=== PATIENT | female | born 1980 | race Caucasian/White ===

== ENCOUNTER 2024-03-13 10:15 | Outpatient (REF) | payer MEDICAID, SELFPAY ==
[2024-03-13 14:50] LABS: MANUAL DIFF FLAG NO
[2024-03-13 14:55] LABS: Basophils Absolute Auto 0.1 X10*3/uL (0.0-0.2); Basophils Percent Auto 0.7 % (0-2); Eosinophils Absolute Auto 0.2 X10*3/uL (0.0-0.4); Eosinophils Percent Auto 2.6 % (0-4); Hematocrit 43.3 % (37.0-47.0); Hemoglobin 13.8 g/dl (12.0-16.0); Imm Gran Abs Auto 0.02 X10*3/uL (0.00-0.03); Imm Gran Pct Auto 0.3 % (0.0-0.4); Lymphocytes Percent Auto 29.1 % (20-40); Mean Corpuscular HGB Conc 31.9 g/dl (31.0-35.0); Mean Corpuscular Hemoglobin 27.3 pg (27.0-33.0); Mean Corpuscular Volume 85.6 fL (80.0-98.0); Mean Platelet Volume 11.6 fL (9.4-12.3); Monocytes Absolute Auto 0.7 X10*3/uL (0.1-1.2); Monocytes Percent Auto 9.7 % (2-11); Neutrophils Absolute Auto 3.9 x10*3/uL (2.0-8.3); Neutrophils Percent Auto 57.6 % (45-73); Platelet Count 247 X10*3/uL (160-400); Red Blood Count 5.06 X10*6/uL (4.20-5.50); Red Cell Distribution Width 13.2 % (11.0-16.0); White Blood Count 6.8 X10*3/uL (4.8-10.8)
[2024-03-13 15:20] LABS: Alanine Aminotransferase 31 U/L (0-31); Albumin Level 3.4 g/dL (3.5-5.0); Alkaline Phosphatase 83 U/L (39-117); Anion Gap 14 (12-20); Aspartate Amino Transferase 16 U/L (5-31); Bilirubin Direct 0.2 mg/dL (0.0-0.5); Bilirubin Total 0.7 mg/dL (0.0-1.0); Blood Urea Nitrogen 16 mg/dL (9-16); Carbon Dioxide 24 mmol/L (22-29); Chloride 102 mmol/L (96-108); Cholesterol 174 mg/dL (<200); Estimated Glomerular Filt Rate > 60; HDL Cholesterol 49 mg/dL (>40); LDL Cholesterol Calculated 97 mg/dL (<100); Sodium 136 mmol/L (135-145); Total Protein 7.1 g/dL (6.5-8.0); Triglycerides 142 mg/dL (<150)
[2024-03-13 15:22] LABS: Glucose Fasting 414 mg/dL (60-99)
[2024-03-13 15:26] LABS: TSH reflex Free T4 1.48 uIU/mL (0.32-4.0)
== END 2024-03-13 10:16 | disposition home or self-care (01) ==
LOC: HO.CHCLDS 10:15
PROVIDERS: Visit Provider Pediatrics
DX: E11.9 Type 2 diabetes mellitus without complications (principal)
CPT/HCPCS: 36415; 80053; 80061; 80076; 82248; 84443; 85025

== ENCOUNTER 2024-12-13 10:28 | Outpatient (REF) | payer MEDICAID, SELFPAY ==
--- OUTSIDE RECORDS SUMMARY | 2024-12-13 11:36 | XMS_ITS | Encounter Summary ---
Author Organization [employer] Address [address] [place] [address] 7t [place] [address] Care Team Providers Care Information Technology Consultant Name Role Phone Tess Ruvalcaba MD Primary Care Provider [phone] Encounter Details Date Type Department Care Team ([facility] st Contact Info) Description 09/27/2024 Orders Only [facility] [address] [place], [place] [id number] ProviderJames MD Social History Tobacco Use Types Packs/Day Years Used Date Smoking Tobacco: Never Passive Smoke Exposure: Current Smokeless Tobacco: Never Alcohol Use Standard Drinks/Week Comments Defer 0 (1 standard drink = 0.6 oz pur e alcohol) Alcohol Answer Date Recorded Frequency of Alcohol Consumption Not on file 09/09/2023 Average Number of Drinks Not on file 023 Frequency of Binge Drinking Not on file 08/22 Score 0 09/09/2023 Depression Answer Date Recorded Patient Health Questionnaire-9 Score 4 09/09/2023 Patient Health Questionnaire-9 Score 4 09/09/2023 Last PHQ-9: Questionnaire Data Not on file 1 Housing Stability Answer Date Recorded What is your housing situation today? I have aiden bhandari 09/06/[address] you li ve. Do you have problems with any of the following? None of the above 09/06/2023 Food Insecurity Answer Date Recorded Within the past 12 months, y ou worried that your food would run out before you got money to buy more: Never True 09/06/2023 Within the past 12 months,th e food you bought just didn't last and you didn't have enough money to get more: Never True Transportation Answer Date Recorded In the past 12 months, has l ack of transportation kept you from medical appts, meetings, work or from getting things needed for daily living? Yes, it has kept me from non-medical meetings, work, or getting things that I need 09/09/2023 Utilities Answer Date Recorded In the past 12 months, has t he electric, gas, oil or water company threatened to shut off services in your home? No 09/06/2023 Depression Answer Date Recorded Patient Health Questionnaire-2 Score 2 09/09/2023 Comments No Sex and Gender Information Value Date Recorded Sex Assigned at Female 09/21/2022 10:32 AM EDT Legal Sex Female 10:32 AM EDT Gender Identity Female 09/21/2022 10:32 AM EDT Sexual Orientation Straight 09/21/2022 10 :32 AM EDT documented as of this encounter Plan of Treatment Not on file documented as of this encounter Procedures Procedure Name Priority Date/Time Associated Diagnosis Comments DIABETES EYE EXAM Routine 09/22/2024 1:20 PM EDT documented in this encounter Results * Diabetes Eye Exam (09/22/2024 1:20 PM EDT) Historical Provider HEALTH MAINTENANCE Final Result documented in this encounter Visit Diagnoses Not on filedocumented in this encounter Additional Health Concerns Assessment Noted Time PHQ-9 Depression Total Score: 4 09/09/20 23 2:36 PM EDT documented as of this encounter Care Teams Information Technology Consultant Relationship Specialty Start Date End Date Tess Ruvalcaba MD [address] [place] [address] PCP - General Family Medicine 11/24/17 documented as of this encounter
--- OUTSIDE RECORDS SUMMARY | 2024-12-13 11:36 | XMS_ITS | Encounter Summary ---
Author Organization [employer] Address [address] [facility] 7 [place] [address] Care Team Providers Care Massage Coordinator Name Role Phone Tess Ruvalcaba MD Primary Care Provider [phone] Reason for Visit * Reason Onset Date Comments Nurse Triage 02/08/2024 Encounter Details Date Type Department Care Team ([facility] st Contact Info) Description 02/08/2024 Telephone [facility] MEDICINE [address] [place] [address] Tess Ruvalcaba MD [address] [place] [address] Nurse Triage Social History Tobacco Use Types Packs/Day Years [...] t he electric, gas, oil or water [employer] threatened to shut off services in your home? No 09/06/2023 Depression Answer Date Recorded Patient Health Questionnaire-2 Score 2 09/09/2023 Comments No Sex and Gender Information Value Date Recorded Sex Assigned at Female 09/21/2022 10:32 AM EDT Legal Sex Female 10:32 AM EDT Gender Identity Female 09/21/2022 10:32 AM EDT Sexual Orientation Straight 09/21/2022 10 :32 AM EDT documented as of this encounter Miscellaneous Notes * Telephone Encounter - Keshia Angeles RN - 02/08/2024 9:53 AM EDT Triage call with [place] [employer] Drier Operator ID [id number] Raul. Pt reports symptoms of cellulitis in left leg. Pt reports a history of this problem. Pt reports increased edema, swelling, redness and warmth ofthis left leg. Pt also has headache. Pt is advised to come to [facility] open till 8pm this evening. No available apts in [facility] today. Pt agrees with this disposition and will come to [facility]. Pt already aware of home care. Insurance is verified as active. Protocol Used: Leg Swelling and Edema (Adult) Protocol-Based Disposition: See in Office or Video Visit Today Video visit not offered Positive Triage Question: * Patient wants to be seen * All higher-acuity triage questions were negative Care Advice Discussed: * Reasons To Call Back - Swelling becomes worse - Swelling becomes red or painful to the touch - Calf pain occurs and becomes constant - You become worse * Telephone Encounter - Danilo Banks - 02/08/2024 8:48 AM EDT Symptoms: Fever, Leg Swelling - Not From Injury Outcome: Schedule an urgent appointment (within 1 hour) or talk to a nurse or provider soon Reason: Severe leg pain now The caller accepted this outcome documented in this encounter Plan of Treatment Not on file documented as of this encounter Visit Diagnoses Not on filedocumented in this encounter Additional Health Concerns Assessment Noted Time PHQ-9 Depression Total Score: 4 09/09/20 23 2:36 PM EDT documented as of this encounter Care Teams Massage Coordinator Relationship Specialty Start Date End Date Tess Ruvalcaba MD [address] [place] [phone] PCP - General Family Medicine 11/24/17 documented as of this encounter
--- OUTSIDE RECORDS SUMMARY | 2024-12-13 11:36 | XMS_ITS | Encounter Summary ---
Author Organization [employer] Address [address] [facility] 7t [place] [address] Care Team Providers Care Tire Design Engineer Name Role Phone Tess Ruvalcaba MD Primary Care Provider [phone] Encounter Details Date Type Department Care Team (Latest Contact Info) Description 12/05/2024 Travel Social History Tobacco Use Types Packs/Day Years [...] documented as of this encounter Care Teams Tire Design Engineer Relationship Specialty Start Date End Date Tess Ruvalcaba MD [address] [place] [address] PCP - General Family Medicine 11/24/17 documented as of this encounter
--- OUTSIDE RECORDS SUMMARY | 2024-12-13 11:36 | XMS_ITS | Encounter Summary ---
Author Organization [employer] Address [address] [facility] 7 [place] [address] Care Team Providers Care Canvas Products Sales Representative Name Role Phone Tess Ruvalcaba MD Primary Care Provider [phone] Reason for Visit * Reason Onset Date Comments Medication Question 04/27/2024 Encounter Details Date Type Department Care Team ([facility] st Contact Info) Description 04/27/2024 Telephone [facility] MEDICINE [address] [place] [address] Tess Ruvalcaba MD [address] [place] [address] Medication Question Social History Tobacco Use Types Packs/Day Years [...] encounter Miscellaneous Notes * Telephone Encounter - Daysi Carr LPN - 04/27/2024 1:15 PM EDT Please review message below. * Telephone Encounter - Danilo Banks - 04/27/2024 11:35 AM EDT Tc from patient calling states was advised by pharmacy to call [facility] in regards to the medication dulaglutide (Trulicity) 4.5 MG/0.5ML solution pen-injector states only have the 3mg in stock and has been with out this medication for a month documented in this encounter Plan of Treatment Not on file documented as of this encounter Visit Diagnoses Not on filedocumented in this encounter Additional Health Concerns Assessment Noted Time PHQ-9 Depression Total Score: 4 09/09/20 23 2:36 PM EDT documented as of this encounter Care Teams Can[employer] Products Sales Representative Relationship Specialty Start Date End Date Tess Ruvalcaba MD [address] [place] [id number] PCP - General Family Medicine 11/24/17 documented as of this encounter
--- OUTSIDE RECORDS SUMMARY | 2024-12-13 11:36 | XMS_ITS | Clinical Summary ---
Author Organization [employer] Address [address] [place] [address] 7t [place] [address] Care Team Providers Care Mix Technician Name Role Phone Tess Ruvalcaba MD Primary Care Provider [phone] Allergies Active Allergy Reactions Criticality Noted Date Comments Cat Dander 08/31/2023 Medications TRUEplus Lancets 33G misc TEST BLOOD SUGAR TWICE DAILY 60 each 023 Active glucose blood (FREESTYLE LITE) test strip Check BS subcutaneous bid 100 each 023 Active insulin glargine (Lantus) 100 UNIT/ML injection Inject 15 units subcutaneously qhs 10 mL 024 Active Alcohol Swabs 70 % pads Use tid as needed to check sugars 100 each 11 024 Active cholecalciferol VITAMIN D (Vitamin D-3) 50 MCG (1999) capsule TAKE ONE CAPSULE BY MOUTH TWICE DAILY 180 capsule 3 024 Active Blood Glucose Monitoring Suppl (Blood Glucose Monitor System) w/Device kitIndications:T ype 2 diabetes mellitus without complication, without long-term current use of insulin ([facility]) Use to check BS 4 times a day or as needed 1 kit 024 Active Jardiance 25 MG TAKE ONE TABLET BY MOUTH EVERY MORNING 30 tablet 5 024 Active Continuous Glucose Sensor (FreeStyle Pat 3 Sensor) misc USE TO check BLOOD SUGAR AND CHANGE EVERY 14 DAYS 024 Active UltiCare Insulin Syringe 30G X 5/16 0.5 ML misc USE ONE DAILY 024 Active Ozempic, 1 MG/DOSE, 4 MG/3ML solution pen-injector Inject 1 mg under the skin 1 (one) time per week. Active insulin lispro (HumaLOG KWIKPEN) 100 UNIT/ML injection Inject 10 Units under the skin with breakfast, with lunch, and with evening meal. Active gabapentin (Neurontin) 300 MG capsuleIndicatio ns:Diabetic polyneuropathy associated with type 2 diabetes mellitus (CMS/HCC) Take 1 capsule (300 mg) by mouth 3 times daily. 90 capsule 11 025 2025 Active dulaglutide (Trulicity) 4.5 MG/0.5ML solution pen-injector Inject under the skin once a week. 022 2024 Discontinued(M ed list cleanup (will not trigger notification to Pharmacy)) FREESTYLE LITE test strip TEST BLOOD SUGAR TWICE DAILY 023 2024 Discontinued(M ed list cleanup (will not trigger notification to Pharmacy)) glucose blood (FREESTYLE LITE) test strip TEST BLOOD SUGAR TWICE DAILY 60 strip 11 023 2024 Discontinued(M ed list cleanup (will not trigger notification to Pharmacy)) methocarbamol (Robaxin) 750 MG tablet Take 1 tablet (750 mg) by mouth 3 times daily for 10 days. 30 tablet 023 2024 Discontinued(M ed list cleanup (will not trigger notification to Pharmacy)) lidocaine (Lidoderm) 5 % patch APPLY 1 PATCH TO SKIN. LEAVE ON FOR 12 HOURS, THEN OFF FOR 12 HOURS DIRECTED. 30 patch 3 023 2024 Discontinued(M ed list cleanup (will not trigger notification to Pharmacy)) dulaglutide (Trulicity) 4.5 MG/0.5ML solution pen-injectorIndi cations:Type 2 diabetes mellitus with other specified complication, without long-term current use of insulin (CMS/[facility]) INJECT ONE PEN (=4.5MG) SUBCUTANEOUSLY ONCE A WEEK DIRECTED 2 mL 11 023 2024 Discontinued(M ed list cleanup (will not trigger notification to Pharmacy)) insulin syringe-needle U-100 31G X 5/16 1 mL misc Use as instructed 100 each 12 024 2024 Discontinued(M ed list cleanup (will not trigger notification to Pharmacy)) Continuous Glucose Monitor Sup miscIndications: Type 2 diabetes mellitus without complication, without long-term current use of insulin (CMS/HCC) Use with GCM device to check BS 2 kit 3 024 2024 Discontinued(M ed list cleanup (will not trigger notification to Pharmacy)) glipiZIDE (Glucotrol) 10 MG tablet TAKE ONE TABLET BY MOUTH TWICE DAILY BEFORE MEALS 180 tablet 1 024 2024 Discontinued(M ed list cleanup (will not trigger notification to Pharmacy)) cephalexin (Keflex) 500 MG capsule Take 1 capsule by mouth 4 times daily. 025 2024 Active Problems Problem Noted Date Diagnosed Date Morbid obesity 02/16/2023 Adenocarcinoma of uterus 12/29/2018 Diabetes mellitus 04/01/2018 Vitamin D deficiency 11/25/2017 Encounters Date Type Department Care Team Description 12/05/2024 10:45 AM EST Office Visit [facility] [address] [place] [address] Ana Barnes MD Diabetic polyneuropathy associated with type 2 diabetes mellitus ([facility]) (Primary Dx); Type 2 diabetes mellitus with hyperglycemia, with long-term current use of insulin ([facility]); Cellulitis of other specified site; Hypokalemia 12/05/2024 Travel 11/27/2024 Patient Outreach [facility] [address] [place] [address] Tess Ruvalcaba MD Transition Of Care (Tcm) (HDF- scheduled) 10/31/2024 Patient Outreach [facility] [address] [place] [address] Tess Ruvalcaba MD Pre-visit Planning ([facility] unable to complete over phone) 09/27/2024 Orders Only [facility] [address] [place] [address] ProviderJames MD from Last 3 Months Immunizations Name Administration Dates Next Due Hep B, adult 11/25/2017 Influenza Injectable Quadriv alant Preservative Free IIV4 MDCK 09/03/2021 Influenza injectable quadriv alent IIV4 with preservative 10/17/2019,09/01/2018,11/24/2017 Influenza injectable quadriv alent preservative free 09/09/2023,08/22/2020 Tdap 07/15/2018 Social History Tobacco Use Types Packs/Day Years [...] Orientation Straight 09/21/2022 10 :32 AM EDT Last Filed Vital Signs Vital Sign Reading Time Taken Comments Blood Pressure 126/58 12/05/2024 11:01 AM EST Pulse 100 12/05/2024 11:01 AM EST Temperature 36.7 ??C (98 ??F) 12/05/2024 11:01 AM EST Respiratory Rate 20 12/05/2024 11:01 AM EST Oxygen Saturation 98% 12/05/2024 11:01 AM EST Inhaled Oxygen Concentration - - Weight 158 kg (348 lb) 12/05/2024 11:01 AM EST Height 156.2 cm (5' 1.5 ) 12/05/2024 11:01 AM ES T Body Mass Index 64.69 12/05/2024 11:01 AM EST Plan of Treatment Health Maintenance Due Date Last Done Comments Pneumococcal Vaccine: Pediatrics (0 to 5 Years) and At-Risk Patients (6 to 64 Years) (1 of 2 - PCV) 1987 Diabetes: Foot Exam 1991 Alcohol/Substance Use Screening 1993 Family Planning (PISQ) 1996 Hepatitis B Vaccines (2 of 3 - 19+ 3-dose series) 12/23/2017 11/25/2017 Mammogram 2021 Diabetes: Urine Protein Screening 01/01/2023 01/01/2022, 10/16/2020, 02/12/2020 Dental Oral Exam 03/02/2024 08/31/2023, 02/16/2018 COVID-19 Vaccine ( season) 2024 12/12/2021, 01/17/2021, 12/15/2020 Dental X-Ray: Bitewings 09/01/2024 08/31/2023, 02/16 Depression Screening 09/09/2024 09/09/2023, 09/09/20 23 SDOH Screening 09/09/2024 09/09/2023 Dental Prophylaxis 02/01/2025 08/03/2024, 1 , 03/15/2019, Additional history exists Diabetes: Hemoglobin A1C 03/05/2025 025, 07/28/2024, 03/22/2024, Additional history exists Lipid Panel 03/13/2025 03/13/2024, 12/23, 10/16/2020 Tobacco Screening 12/05/2025 12/05/2024 Dental X-Ray: Full Mouth 09/01/2026 08/31/2023, 0306/2018 Eye Exam 09/22/2026 09/22/2024 DTaP/Tdap/Td Vaccines (2 - Td or Tdap) 07/15/2028 07/15/2018 Zoster Vaccines (1 of 2) 2031 RSV Patients and Patients Aged 60 years or older (1 - 1-dose 75+ series) 2056 HIV Screening Completed 02/12/2020 Hepatitis C Screening Completed 02/12/2020 Influenza Vaccine Completed 08/03/2024, , 09/03/2021, Additional history exists HIB Vaccines Aged Out No longer eligi ble based on patient's age to complete this topic HPV Vaccines Aged Out No longer eligi ble based on patient's age to complete this topic Hepatitis A Vaccines Aged Out No long er eligible based on patient's age to complete this topic IPV Vaccines Aged Out No longer eligi ble based on patient's age to complete this topic Meningococcal Vaccine Aged Out No alisha santi eligible based on patient's age to complete this topic RSV under 20 months Aged Out No longe r eligible based on patient's age to complete this topic Rotavirus Vaccines Aged Out No longer eligible based on patient's age to complete this topic Procedures Procedure Name Priority Date/Time Associated Diagnosis Comments POCT GLUCOSE Routine 12/05/2024 11:16 AM EST Type 2 diabetes mellitus with hyperglycemia, with long-term current use of insulin ([facility]) POCT GLYCATED HEMOGLOBIN, TOTAL Routine 12/05/2024 11:14 AM EST Type 2 diabetes mellitus with hyperglycemia, with long-term current use of insulin ([facility]) HM DIABETES EYE EXAM Routine 09/22/2024 1:20 PM EDT PROPHYLAXIS - ADULT Routine 08/03/2024 2 :00 PM EDT LIPID PANEL, STANDARD Routine 03/13/2024 10:20 AM EDT DIAGNOSTIC - DIAGNOSTIC IMAGING - INTRAORAL - COMPREHENSIVE SERIES OF RADIOGRAPHIC IMAGES Routine 08/31/2023 3:00 PM EDT COMPREHENSIVE ORAL EVALUATION - NEW OR ESTABLISHED PATIENT Routine 08/31/2023 3:00 PM EDT ALBUMIN, RANDOM URINE W/CREATININE Routine 01/01/2022 10:22 AM EST [facility] HISTORICAL HEPATITIS C ANTIBODY Routine 02/12/2020 10:28 AM EDT [facility] HISTORICAL HIV AB/AG Routine 02/12/2020 10:28 AM EDT from Last 3 Months or Most Recently Relevant to Health Maintenance Results * (ABNORMAL) POCT Glucose (12/05/2024 11:16 AM EST) Glucose Blood, POC 394(A) 60 - 200 mg/dL QC Media Lot # [id number] Lot# Expiration Date 8936 Blood Capillary blood specimen / Unknown 12/05/2024 11:16 AM EST Ana Barnes MD POINT OF CARE TEST ENTER/ED IT ORDERABLES Final Result * (ABNORMAL) POCT HGB A1C (12/05/2024 11:14 AM EST) Hemoglobin A1C 10,229,670 .0(A) 4.0 - 6.0 % QC Media Lot # [id number] Blood 12/05/2024 11:1 4 AM EST Ana Barnes MD POINT OF CARE TEST ENTER/ED IT ORDERABLES Final Result * Hm Diabetes Eye Exam (09/22/2024 1:20 PM EDT) Historical Provider HEALTH MAINTENANCE Final Result * Lipid Panel, Standard (03/13/2024 10:20 AM EDT) Triglycerides 142 <150 mg/dL [facility] Comment:Desirable Triglyceri de: less than 150 mg/dLBorderline High Triglyceride 150-199 mg/dLHigh Triglyceride: 200-499 mg/dLVery High Triglyceride: greater than or equal to 5OO mg/dL Cholesterol 174 <200 mg/dL [facility] Comment:Desirable Cholestero l: less than 200 mg/dLBorderline High Cholesterol: 200-239 mg/dLHigh Cholesterol: greater than 239 mg/dL LDL Cholesterol Calculated 97 <100 mg/dL [facility] Comment:Desirable LDL: less than 100 mg/dLNear Optimal/Above Optimal LDL: 110- 129 mg/dLBorderline High LDL: 130-159 mg/dLHigh LDL: 160-189 mg/dLVery High LDL: greater than or equal to 190 mg/dL HDL Cholesterol 49 >40 mg/dL [facility] Comment:Desirable HDL: great er than 40 mg/dL Note: This HDL assay may give artificially low results in patients with liver disease. 03/13/2024 10:2 0 AM EDT 03/13/2024 2:45 PM EDT us Tess Ruvalcaba MD LAB BLOOD ORDERABLES Final Re sult [facility] [address] [place] [address] [phone] * ALBUMIN, RANDOM URINE W/CREATININE (01/01/2022 10:22 AM EST) Microalbumin Urine 0.7 See Note: mg/dL [facility] Comment: Reference Range: ?? Reference Range Not established Microalb/Creat Ratio 9 <30 mcg/mg creat [facility] Comment: ?? The ADA defines abnormalities in albumin excretion as follows: ?? Albuminuria Category ?Result (mcg/mg creatinine) ?? Normal to Mildly increased ?? <30 Moderately increased ? 30-299 ?? Severely increased ? > OR = 300 ?? The ADA recommends that at least two of three specimens collected within a 3-6 month period be abnormal before considering a patient to be within a diagnostic category. Creatinine, Urine 80 20 - 275 mg/dL [facility] 01/01/2022 10:2 2 AM EST Tess Ruvalcaba MD LAB URINE ORDERABLES Final Re sult Performing Organization Address [facility] de Phone Number [facility] [address] * HEPATITIS C ANTIBODY (02/12/2020 10:28 AM EDT) HEPATITIS C ANTIBODY NONREACTIVE NONREACTIVE [facility] Comment: Antibodies to HCV not detected; does not exclude early acute HCV infection. 02/12/2020 10:2 8 AM EDT Tess Ruvalcaba MD HISTORICAL/NON ORDERABLE LABS Final Result Performing Organization Address [facility] Phone [facility] [address] * HIV AB/AG (02/12/2020 10:28 AM EDT) Pathologist [facility] HIV AG/AB NONREACTIVE [facility] Comment: HIV-1 p24 Ag and/or HIV-1/HIV-2 Ab not detected. ?? A test result that is nonreactive does not exclude the possibility of exposure to or infection with HIV-1 and/or HIV-2. Nonreactive results in this assay for individuals with prior exposure to HIV-1 and/or HIV-2 may be due to antigen and antibody levels that are below the limit of detection of this assay. ?? The [employer] HIV Ag/Ab Combo assay result and supplemental assay results should be interpreted in conjunction with the patient's clinical presentation, history and other laboratory results. ??If the results are inconsistent with clinical evidence, additional testing is suggested to confirm the result. 02/12/2020 10:2 8 AM EDT Tess Ruvalcaba MD HISTORICAL/NON ORDERABLE LABS Final Result Performing Organization Address [facility] de Phone Number [facility] [address] from Last 3 Months or Most Recently Relevant to Health Maintenance Insurance [facility] [address] [place] [id number] DENTAL-[facility] MEDICAID [address] [place] [id number] [place] [id number] [place] [id number] Care Teams Mix Technician Relationship Specialty Start Date End Date Tess Ruvalcaba MD [address] [place] [address] CHAVO Burr [id number] PCP - General Family Medicine 11/24/17
--- OUTSIDE RECORDS SUMMARY | 2024-12-13 11:36 | XMS_ITS | Encounter Summary ---
Author Organization [employer] Address [address] [place] [address] 7 [place] [address] Care Team Providers Care Low Raw Sugar Cutter Name Role Phone Tess Ruvalcaba MD Primary Care Provider [phone] Reason for Visit * Reason Comments Transition Of Care (Tcm) HDF- scheduled Encounter Details Date Type Department Care Team ([facility] st Contact Info) Description 11/27/2024 Patient Outreach [facility] MED & PEDS [address] [place] [address] Tess Ruvalcaba MD [address] [place] [address] Transition Of Care (Tcm) (HDF- scheduled) Social History Tobacco Use Types Packs/Day Years [...] as of this encounter Miscellaneous Notes * Significant Event - Manpreet Cramer - 11/27/2024 10:30 AM EST 11/27/24 1028 Hospital Discharges and Admission for [facility] Type of Visit Hospital Admission Date of Admission/Visit 11/24/24 Date of Discharge 11/26/24 Facility [facility] Diagnosis Lymphedema,Left leg cellulitis, Severe sepsis Diabetes,History of endometrial cancer, Hyponatremia,Morbidly obese Disposition Discharged Home Follow-Up Actions Follow-Up Needed Provider appointment Follow-Up Outcome Spoke to Patient;Booked Appointment Initial Contact Date 11/27/24 ronny Elizabeth outbound call to patient for HDF outreach. Patient's name and were confirmed.Patient educated on the importance of follow up with provider following inpatient admission. Patient offered an HDF appt. Patient is agreeable to an appointment and has been scheduled for 12/05/2024 at 10;45 AM with . Insurance verified prior to scheduling. Patient advised to bring to appointment a photo id and insurance card. Patient provided with education on contacting the Health Center with any questions or concerns prior to the scheduled appointment. Patient educated on extended clinic hours on Mondays and Wednesdays, and Walk-In Urgent Care Located in [facility] of [facility]. Patient provided with after-hours line for [facility], , which offer night time triage service and option to transfer to offender job retention specialist provider if needed. Discharge summary scanned into chart. documented in this encounter Plan of Treatment Not on file documented as of this encounter Visit Diagnoses Not on filedocumented in this encounter Additional Health Concerns Assessment Noted Time PHQ-9 Depression Total Score: 4 09/09/20 23 2:36 PM EDT documented as of this encounter Care Teams Low Raw Sugar Cutter Relationship Specialty Start Date End Date Tess Ruvaclaba MD [address] [place] [address] PCP - General Family Medicine 11/24/17 documented as of this encounter
--- OUTSIDE RECORDS SUMMARY | 2024-12-13 11:36 | XMS_ITS | Encounter Summary ---
Author Organization [employer] [facility] Address [address] [place] [address] [place] [address] Care Team Providers Care Vehicle Upholsterer Name Role Phone Tess Ruvalcaba MD Primary Care Provider [phone] Reason for Referral * Consultation (Routine) - Pending Review Specialty Diagnoses / Procedures Referred By Bhavin benedict Referred To Contact Vascular Surgery Diagnoses Cellulitis of other specified site Ana Barnes MD [address] [place] [address] Phone: tel: fax: Referral ID Status Reason Start Date Expiration Date Visits Requested Visits Authorized [id number] Pending Review Specialty Services Required 12/05/2024 12/05/2025 1 1 Reason for Visit * Reason Comments Hospital discharge follow-up Encounter Details Date Type Department Care Team (Latest Contact Info) Description 12/05/2024 10:45 AM EST Office Visit [facility] CH[facility] MED & PEDS [address] [place] [address] Ana Barnes MD [address] [place] [address] Diabetic polyneuropathy associated with type 2 diabetes mellitus (CMS/HCC) (Primary Dx); Type 2 diabetes mellitus with hyperglycemia, with long-term current use of insulin (CMS/HCC); Cellulitis of other specified site; Hypokalemia Social History Tobacco Use Types Packs/Day Years [...] AM EDT documented as of this encounter Last Filed Vital Signs Vital Sign Reading [...] Mass Index 64.69 12/05/2024 11:01 AM EST documented in this encounter Progress Notes * Ana Barnes MD - 12/05/2024 10:45 AM EST Subjective Patient ID: Trinidad Issa is a 44 y.o. female who presents for Hospital discharge follow-up. HPI Patient with history of diabetes, severe obesity, endometrial cancer Was evaluated at [facility] emergency department on November 24, 2024 for pain of the left leg of 2 days duration. Diagnosed with cellulitis and sepsis. Started on antibiotics. Overall improved. Hospitalization complicatedWith hypokalemia and hypophosphatemia. Patient improved and was discharged on Keflex 500 mg 5 timesa day. Patient still has 2 or 3 days of treatment left. Overall feels better. Needs to follow-up with the lymphedema clinic. Was started on gabapentin 300 mg at bedtime because of the complaint of the burning sensation of the left lower limb. The gabapentin has been effective and very helpful in helping patient falls asleep at night Patient Active Problem List Diagnosis Adenocarcinoma of uterus ([facility]/HCC) Morbid obesity ([facility]) Vitamin D deficiency Diabetes mellitus ([facility]) Current Outpatient Medications on File Prior to Visit Medication Sig Dispense Refill Alcohol Swabs 70 % pads Use tid as needed to check sugars 100 each 11 Blood Glucose Monitoring Suppl (Blood Glucose Monitor System) w/Device kit Use to check BS 4 times a day or as needed 1 kit 0 cephalexin (Keflex) 500 MG capsule Take 1 capsule by mouth 4 times daily. cholecalciferol VITAMIN D (Vitamin D-3) 50 MCG (1999 UT) capsule TAKE ONE CAPSULE BY MOUTH TWICE DAILY 180 capsule 3 Continuous Glucose Sensor (FreeStyle Pat 3 Sensor) [facility] USE TO check BLOOD SUGAR AND CHANGE EVERY14 DAYS glucose blood (FREESTYLE LITE) test strip Check BS subcutaneous bid 100 each 11 insulin glargine (Lantus) 100 UNIT/ML injection Inject 15 units subcutaneously qhs 10 mL 11 insulin lispro (HumaLOG KWIKPEN) 100 UNIT/ML injection Inject 10 Units under the skin with breakfast, with lunch, and with evening meal. Jardiance 25 MG TAKE ONE TABLET BY MOUTH EVERY MORNING 30 tablet 5 Ozempic, 1 MG/DOSE, 4 MG/3ML solution pen-injector Inject 1 mg under the skin 1 (one) time per week. TRUEplus Lancets 33G misc TEST BLOOD SUGAR TWICE DAILY 60 each 11 UltiCare Insulin Syringe 30G X 5/16 0.5 ML misc USE ONE DAILY [DISCONTINUED] Continuous Glucose Monitor Sup misc Use with GCM device to check BS 2 kit 3 [DISCONTINUED] dulaglutide (Trulicity) 4.5 MG/0.5ML solution pen-injector Inject under the skin once a week. [DISCONTINUED] dulaglutide (Trulicity) 4.5 MG/0.5ML solution pen-injector INJECT ONE PEN (=4.5MG) SUBCUTANEOUSLY ONCE A WEEK DIRECTED 2 mL 11 [DISCONTINUED] FREESTYLE LITE test strip TEST BLOOD SUGAR TWICE DAILY [DISCONTINUED] glipiZIDE (Glucotrol) 10 MG tablet TAKE ONE TABLET BY MOUTH TWICE DAILY BEFORE [id number] tablet 1 [DISCONTINUED] glucose blood (FREESTYLE LITE) test strip TEST BLOOD SUGAR TWICE DAILY 60 strip 11 [DISCONTINUED] insulin syringe-needle U-100 31G X 5/16 1 mL misc Use as instructed 100 each 12 [DISCONTINUED] lidocaine (Lidoderm) 5 % patch APPLY 1 PATCH TO SKIN. LEAVE ON FOR 12 HOURS, THEN OFF FOR 12 HOURS DIRECTED. 30 patch 3 [DISCONTINUED] methocarbamol (Robaxin) 750 MG tablet Take 1 tablet (750 mg) by mouth 3 times daily for 10 days. 30 tablet 0 No current facility-administered medications on file prior to visit. Review of Systems Constitutional: Negative for appetite change, chills and diaphoresis. Eyes: Negative for pain, redness and itching. Gastrointestinal: Negative for anal bleeding and blood in stool. Genitourinary: Negative for genital sores, hematuria and menstrual problem. Musculoskeletal: Negative for back pain, gait problem and joint swelling. Objective BP 126/58 (BP Location: Left arm, Patient Position: Sitting, BP Cuff Size: Adult long) Pulse 100 Temp 98 ??F (36.7 ??C) (Oral) Resp 20 Ht 5' 1.5 (1.562 m) Wt 348 lb (158 kg) SpO2 98% BMI 64.69 kg/m?? Physical Exam Constitutional: General: She is not in acute distress. Appearance: Normal appearance. She is obese. She is not ill-appearing, toxic- appearing or diaphoretic. Cardiovascular: Rate and Rhythm: Normal rate. Pulmonary: Effort: Pulmonary effort is normal. Skin: Comments: Erythema with desquamation of the left lower limb well-demarcated. Erythema with some scabs of the left knee. Assessment/Plan Diagnoses and all orders for this visit: Diabetic polyneuropathy associated with type 2 diabetes mellitus ([facility]) Comments: Continue with gabapentin as recommended. Orders: - gabapentin (Neurontin) 300 MG capsule; Take 1 capsule (300 mg) by mouth 3 times daily. Type 2 diabetes mellitus with hyperglycemia, with long-term current use of insulin ([facility]) Comments: A1c is not at goal Patient has a follow-up next week with her digital librarian She has not filled out the new dose of Lantus yet Orders: - POCT Glucose - POCT HGB A1C Cellulitis of other specified site Comments: Much improved Vaseline to the erythematous and desquamating areas to complete the treatment with cephalexin as directed. Orders: - Referral to Vascular Surgery; Future Hypokalemia Comments: Labs ordered. Patient will be contacted with results. Orders: - Basic Metabolic Panel; Future - Phosphate (As Phosphorus); Future documented in this encounter Plan of Treatment Scheduled Orders Name Type Priority Associated Diagnoses Orde r Schedule Basic Metabolic Panel Lab Routine Hypokalemia Expected: 12/05/2024 (Approximate), Expires: 12/05/2025 Phosphate (As Phosphorus) Lab Routine Hypokalemia Expected: 12/05/2024, Expires: 12/05/2025 Scheduled Referrals Name Type Priority Associated Diagnoses Orde r Schedule Referral to Vascular Surgery Outpatient Referral Routine Cellulitis of other specified site Expected: 12/05/2024 (Approximate), Expires: 12/05/2025 documented as of this encounter Procedures Procedure Name Priority Date/Time Associated Diagnosis Comments POCT GLUCOSE Routine 12/05/2024 11:16 AM EST Type 2 diabetes mellitus with hyperglycemia, with long-term current use of insulin ([facility]) POCT GLYCATED HEMOGLOBIN, TOTAL Routine 12/05/2024 11:14 AM EST Type 2 diabetes mellitus with hyperglycemia, with long-term current use of insulin ([facility]) documented in this encounter Results * (ABNORMAL) POCT Glucose (12/05/2024 11:16 AM EST) Glucose Blood, POC 394(A) 60 - 200 mg/dL QC Media Lot # [id number] Lot# Expiration Date 483 Blood Capillary blood specimen / Unknown 12/05/2024 11:16 AM EST Ana Barnes MD POINT OF CARE TEST ENTER/ED IT ORDERABLES Final Result * (ABNORMAL) POCT HGB A1C (12/05/2024 11:14 AM EST) Hemoglobin A1C 10,229,670 .0(A) 4.0 - 6.0 % QC Media Lot # [id number] Blood 12/05/2024 11:1 4 AM EST Ana Barnes MD POINT OF CARE TEST ENTER/ED IT ORDERABLES Final Result documented in this encounter Visit Diagnoses Diagnosis Diabetic polyneuropathy associated with type 2 diabetes mellitus ([facility])- Primary Type 2 diabetes mellitus with hyperglycemia, with long-term current use of insulin ([facility]) Cellulitis of other specified site Hypokalemia Hypopotassemia documented in this encounter Additional Health Concerns Assessment Noted Time PHQ-9 Depression Total Score: 4 09/09/20 23 2:36 PM EDT documented as of this encounter Care Teams Vehicle Upholsterer Relationship Specialty Start Date End Date Tess Ruvalcaba MD [address] [place] [address] PCP - General Family Medicine 11/24/17 documented as of this encounter
--- OUTSIDE RECORDS SUMMARY | 2024-12-13 11:37 | XMS_ITS | Encounter Summary ---
Author Organization [employer] Address [address] [place] [address] 7 [place] [address] Care Team Providers Care Mold Inspector Name Role Phone Tess Ruvalcaba MD Primary Care Provider Encounter Details Date Type Department Care Team ([facility] st Contact Info) Description 12/15/2022 Telephone [facility] CH[facility] MED & PEDS [address] [place] [address] Tess Ruvalcaba MD [address] [place] [address] Social History Tobacco Use Types Packs/Day Years Used Date Smoking Tobacco: Never Assessed Comments Unknown Sex and Gender Information Value Date Recorded Sex Assigned at Female 09/21/2022 10:32 AM EDT Legal Sex Female 10:32 AM EDT Gender Identity Female 09/21/2022 10:32 AM EDT Sexual Orientation Straight 09/21/2022 10 :32 AM EDT documented as of this encounter Plan of Treatment Not on file documented as of this encounter Visit Diagnoses Not on filedocumented in this encounter Care Teams Mold Inspector Relationship Specialty Start Date End Date Tess Ruvalcaba MD [address] [place] [address] PCP - General Family Medicine 11/24/17 documented as of this encounter
--- OUTSIDE RECORDS SUMMARY | 2024-12-13 11:37 | XMS_ITS | Encounter Summary ---
Author Organization [employer] Address [address] [facility] 7 [place] [address] Care Team Providers Care Superintendent Factory Name Role Phone Tess Ruvalcaba MD Primary Care Provider [phone] Reason for Visit * Reason Onset Date Comments PT1 09/02/2023 Encounter Details Date Type Department Care Team ([facility] st Contact Info) Description 09/02/2023 Telephone [facility] MED & PEDS [address] [place], [place] [id number] Tess Ruvalcaba MD [address] [place] [address] PT1 Social History Tobacco Use Types Packs/Day Years Used Date Smoking Tobacco: Never Passive Smoke Exposure: Current Smokeless Tobacco: Never Alcohol Use Standard Drinks/Week Comments Defer 0 (1 standard drink = 0.6 oz pur e alcohol) Depression Answer Date Recorded Patient Health Questionnaire-9 Score 0 04/15/2023 Housing Stability Answer Date Recorded What is [...] from getting things needed for daily living? No 09/06/2023 Utilities Answer Date Recorded In the past 12 months, has t he electric, gas, oil or water company threatened to shut off services in your home? No 09/06/2023 Depression Answer Date Recorded Patient Health Questionnaire-2 Score 0 04/15/2023 Comments No Sex and Gender Information Value Date Recorded Sex Assigned at Female 09/21/2022 10:32 AM EDT Legal Sex Female 10:32 AM EDT Gender Identity Female 09/21/2022 10:32 AM EDT Sexual Orientation Straight 09/21/2022 10 :32 AM EDT documented as of this encounter Miscellaneous Notes * Telephone Encounter - Awilda Jaimes - 09/02/2023 2:44 PM EDT PT-1 submitted for patient. They will receive a letter of approval or denial in the mail. * Telephone Encounter - Ingrid Neville - 09/02/2023 11:55 AM EDT Tc from [facility] (long term care administrator) requesting PT1 transportation for pt. Start Date: 09/09/2023 Time: 2:00 PM Visits: n/a Address: [address] [place] [address] Facility: [facility] Wheel Chair: n/a Security Software Engineer Needed: n/a documented in this encounter Plan of Treatment Not on file documented as of this encounter Visit Diagnoses Not on filedocumented in this encounter Additional Health Concerns Assessment Noted Time PHQ-9 Depression Total Score: 0 04/15/20 23 2:08 PM EDT documented as of this encounter Care Teams Superintendent Factory Relationship Specialty Start Date End Date Tess Ruvalcaba MD [address] [place] [id number] PCP - General Family Medicine 11/24/17 documented as of this encounter
--- OUTSIDE RECORDS SUMMARY | 2024-12-13 11:37 | XMS_ITS | Encounter Summary ---
Author Organization [employer] Address [address] [place] [address] 7 [place] [address] Care Team Providers Care Laboratory Coordinator Name Role Phone Tess Ruvalcaba MD Primary Care Provider [phone] Encounter Details Date Type Department Care Team (Latest Contact Info) Description 03/15/2019 Abstract C CONVERSIONS Dental, Provider, DDS Social History Tobacco Use Types Packs/Day Years [...] on filedocumented in this encounter Care Teams Laboratory Coordinator Relationship Specialty Start Date End Date Tess Ruvalcaba MD [address] [place] [address] PCP - General Family Medicine 11/24/17 documented as of this encounter
--- OUTSIDE RECORDS SUMMARY | 2024-12-13 11:37 | XMS_ITS | Clinical Summary ---
Author Organization [address] [place] [address] Address [address] [place] [address] Phone Care Team Providers Care Catheter Finisher And Inspector Name Role Phone Tess Ruvalcaba MD Primary Care Provider [phone] Allergies No known active allergies Medications Medication Sig Dispensed Refills Start Date End Date Status cholecalciferol (VITAMIN D-3) 1,250 mcg (50,000 unit) capsule Take 1 capsule (50,000 Units total) by mouth 1 (one) time per week. 05/10/2024 Active dulaglutide (Trulicity) 0.75 mg/0.5 mL pen injector injection Inject under the skin. Active ferrous sulfate 325 mg (65 mg iron) EC tablet Take 1 tablet (325 mg total) by mouth 1 (one) time each day. 03/30/2018 Active Active Problems Problem Noted Date Diagnosed Date Class 3 severe obesity with body mass index (BMI) of 60.0 to 69.9 in adult 09/05/2024 Endometrial cancer 11/01/2020 Anemia 11/01/2020 Diabetes mellitus 04/01/2018 Medical History Medical History Date Comments History of abdominal hysterectomy 10/04/2018 DX:History of abdominal hysterectomy Social History Tobacco Use Types Packs/Day Years Used Date Smoking Tobacco: Never Smokeless Tobacco: Never Alcohol Use Standard Drinks/Week Comments No 0 (1 standard drink = 0.6 oz pur e alcohol) Sex and Gender Information Value Date Recorded Sex Assigned at Not on file Gender Identity Not on file Sexual Orientation Not on file Job Start Date Occupation Industry Not on file Not on file Not on file Obstetrics History Last Filed Vital Signs Vital Sign Reading Time Taken Comments Blood Pressure 121/83 04/10/2024 4:07 PM EDT Sit ting L Arm Pulse 73 04/10/2024 4:07 PM EDT Temperature - - Respiratory Rate - - Oxygen Saturation - - Inhaled Oxygen Concentration - - Weight 154 kg (339 lb) 08/16/2024 10:13 AM EDT Height 157.5 cm (5' 2 ) 04/10/2024 4:07 PM EDT Body Mass Index 62 04/10/2024 4:07 PM EDT Plan of Treatment Health Maintenance Due Date Last Done Comments Breast Cancer Screening 1981 COVID-19 Vaccine (#1) 1986 Pneumococcal Vaccine: Pediatrics (0 to 5 Years) and At-Risk Patients (6 to 64 Years) (1 of 2 - PCV) 1987 Diabetes: Annual Foot Exam 1991 Diabetes: Annual Retina Eye Exam 1991 DTaP,Tdap,and Td Vaccines (1 - Tdap) 2000 Hepatitis B Vaccines (1 of 3 - 19+ 3-dose series) 2000 Cervical Cancer Screening: P ap Smear 2002 Depression Screening 10/20/2022 HIV Screening 10/20/2022 Hepatitis C Screening 10/20/2022 Social Influencers of Health Screening 10/20/2022 Diabetes: Annual Urine Albumin-Creatinine Ratio (uACR) 11/04/2022 Influenza Vaccine (#1) 2024 Diabetes: Blood Sugar Contro l Test (HGBA1C) 10/31/2024 05/01/2024, 05/01/2024 Diabetes: Annual GFR (Glomerular Filtration Rate) 03/13/2025 03/13/2024 Cholesterol Screening (Lipid Panel) 12/25/2026 12/25/2021 HIB Vaccines Aged Out No longer eligi [...] on patient's age to complete this topic MMR Vaccines Aged Out No longer eligi ble based on patient's age to complete this topic Meningococcal ACWY Vaccine Aged Out N o longer eligible based on patient's age to complete this topic RSV Immunization Patients Under 20 months Aged Out No longer eligible b ased on patient's age to complete this topic Varicella Vaccines Aged Out No longer eligible based on patient's age to complete this topic Procedures Procedure Name Priority Date/Time Associated Diagnosis Comments HEMOGLOBIN A1C Routine 05/01/2024 ANNUAL BMP BLOOD TEST Routine 03/13/2024 LIPID PANEL Routine 12/25/2021 from Last 3 Months or Most Recently Relevant to Health Maintenance Results * (ABNORMAL) Hemoglobin A1c (05/01/2024) Pathologist [facility] Hemoglobin A1C 10.2(A) 6.5 % Blood Venous blood specimen / Unknown Historical Provider LAB BLOOD ORDERAB LES * Annual BMP Blood Test (03/13/2024) [facility] Annual BMP Blood Test Abstracted Historical Provider [facility] * (ABNORMAL) Lipid panel (12/25/2021) [facility] LDL/HDL Ratio 4 0 - 4 Triglycerides 179(A) 0 - 150 mg/dL Cholesterol 196 0 - 200 mg/dL HDL 45 40 mg/dL LDL Cholesterol 116(A) 0 - 100 mg/dL Blood Venous blood specimen / Unknown Historical Provider LAB BLOOD ORDERAB LES from Last 3 Months or Most Recently Relevant to Health Maintenance Advance Directives Documents on File Type Date Recorded Patient Agency Sales Director Expl anation Health Care Decision (hx) 04/11/2021 AD YUEN DIRECTIVE Health Care Decision (hx) 04/11/2021 AD YUEN DIRECTIVE Health Care Decision (hx) 04/11/2021 AD YUEN DIRECTIVE Health Care Decision (hx) 04/11/2021 AD YUEN DIRECTIVE Health Care Decision (hx) 04/11/2021 AD YUEN DIRECTIVE Health Care Decision (hx) 04/11/2021 AD YUEN DIRECTIVE Care Teams Catheter Finisher And Inspector Relationship Specialty Start Date End Date Tess Ruvalcaba MD [address] [place] [address] PCP - General 02/23/18
[2024-12-13 14:27] LABS: Anion Gap 12 (12-20); Blood Urea Nitrogen 14 mg/dL (9-16); Calcium 8.9 mg/dL (8.4-10.2); Carbon Dioxide 23 mmol/L (22-29); Chloride 103 mmol/L (96-108); Estimated Glomerular Filt Rate > 60; Glucose Random 322 mg/dL (60-115); Phosphorus 2.8 mg/dL (2.7-4.5); Potassium 4.4 mmol/L (3.3-5.1); Sodium 134 mmol/L (135-145)
== END 2024-12-13 10:29 | disposition home or self-care (01) ==
LOC: HO.CHCLDS 10:28
PROVIDERS: Visit Provider Internal Medicine
DX: E87.6 Hypokalemia (principal)
CPT/HCPCS: 36415; 80048; 84100

== ENCOUNTER 2025-09-17 09:20 | Outpatient (AMB) | payer OTHER, SELFPAY ==
--- NOTE | 2025-09-17 09:21 | MHC.PC.OV ---
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 Required: No Accompanied by: Self / Same As Patient Allergies No Known Allergies Allergy (Verified 09/17/25 09:22) Medication List - Last Reconciled 09/17/25 by Raphael Buckner MD cholecalciferol (vitamin D3) 50 mcg PO BID estradiol (Vivelle-Dot) 1 patch topical 2XW gabapentin 300 mg PO TID insulin glargine (Lantus Solostar U-100 Insulin) 30 units subcut BEDTIME insulin lispro 10 units subcut TID rosuvastatin 5 mg PO DAILY tirzepatide (Mounjaro) mg subcut QWEEK Tobacco use date assessed: 09/17/25 Dental Screening Dental Screen Date: 09/17/25 Did you have a dental visit in the last 12 months?: Yes Did you have a dental problem in the last 6 months where you did not have access to dental care?: Yes Was dental information given to patient?: Patient has dentist HPI HPI Comments History of Present Illness Details History of Present Illness The patient is a 45 year old female presenting to establish care due to a change of insurance and for management of multiple chronic conditions. Diabetes Mellitus: The patient was diagnosed with diabetes approximately 7-8 years ago. Her current insulin regimen includes 30 units at night and 10 units before meals. She recently started Ozempic, prescribed by her sales recruiting coordinator. She has an upcoming ophthalmology appointment on September 25 for a diabetic eye exam but has not seen a employment law specialist this year. History of Cancer: The patient has a history of cancer, which occurred in [id number]. She was treated with radiotherapy and did not receive chemotherapy. She is followed by an oncologist and a woodworking bench carpenter and takes estradiol. Fatty Liver Disease: The patient reports a diagnosis of fatty liver disease. Her sales recruiting coordinator offered her a medication for it, which she was unable to obtain from the pharmacy as it was not available. She has never had a sonogram to evaluate her liver. Anemia: The patient required a blood transfusion last month. Lab work from August 23 showed low calcium and protein. Neuropathic Pain: The patient takes gabapentin for neuropathic pain located in her foot. History of Cellulitis: The patient reports a history of cellulitis in the left leg, which resulted in a persistent depression in the skin. Surgical History: - History of a procedure on the left leg for cellulitis. Medications: - Vitamin D3 for vitamin D deficiency - Estradiol - Gabapentin for neuropathic pain - Insulin, 30 units at night and 10 units before meals, for diabetes - Ozempic, started last Wednesday, for diabetes Diagnostic Results: - Labs (08/23): Low calcium and protein noted. - Mammogram (prior): Normal. Past Medical History - Cancer, status post-radiotherapy in [id number] - Diabetes Mellitus, diagnosed 7-8 years ago - Anemia, required blood transfusion last month - Neuropathic pain - Fatty liver disease - History of cellulitis of the left leg - Vitamin D deficiency Health Maintenance - Place referral for a mammogram, as it is due. - Request outside medical records from her specialists. - Obtain bloodwork today, including CBC, lipid panel, vitamin B12, and vitamin D. - Follow up in one week to review laboratory results. [facility] Medical History (Updated 09/17/25 @ 11:58 by Raphael Buckner MD) Type 2 diabetes mellitus with diabetic neuropathy Hyperlipidemia Elevated liver enzymes Diabetes mellitus Family History (Updated 09/17/25 @ 09:29 by Dyllan Topete MA) Mother High blood pressure Father Diabetes Social History Housing: Apartment Patient Tobacco Use Status: Never used Tobacco service: No Current occupational status: employed Cognitive needs: No Hearing needs: No Vision needs: No Questionnaire PHQ-9 Over the last 2 weeks, how often have you been bothered by any of the following problems? 1. Little interest or pleasure in doing things: not at all 2. Feeling down, depressed, or hopeless: not at all 3. Trouble falling or staying asleep, or sleeping too much: several days 4. Feeling tired or having little energy: several days 5. Poor appetite or overeating: several days 6. Feeling bad about yourself - or that you are a failure or have let yourself or your family down: not at all 7. Trouble concentrating on things, such as reading the newspaper or watching television: not at all 8. Moving or speaking so slowly that other people could have noticed. Or the opposite - being so fidgety or restless that you have been moving around a lot more than usual: not at all 9. Thoughts that you would be better off or of hurting yourself in some way: not at all Total score: 3 Source: Developed by Drs. Hari Vasquez, Cherise Coulter, Michael Whyte and colleagues, with an educational wale from [employer] Thrive Questionnaire Date Thrive assessed: 09/14/25 I am a: Patient What is your living situation today?: I have a steady place to live Within the past 12 months, did the food you bought not last and you didn't have the money to get more?: Sometimes True Within the past 12 months, did you worry whether your food would run out before you got money to buy more?: Sometimes True Do you have trouble paying for medicines?: Yes Do you have trouble getting transportation to medical appointments?: No Do you have trouble paying your heating and electricity bill?: Yes Do you have trouble taking care of your child, family member or friend?: No Do you have trouble with day-to-day activities such as bathing, preparing meals, shopping, managing finances, etc.?: No Are you currently unemployed and looking for a job?: No Are you interested in more education?: Yes Please select the resources that you would like help with: Paying for medicine Currently or been in a relationship where the following occur: No concerns reported THRIVE Score: 3 AUDIT C Alcohol Use Questionnaire (AUDIT-C) 1. How often do you have a drink containing alcohol?: Never Total Score: 0 RADHA-7 AMB Questionnaire RADHA-7 Feeling nervous, anxious, or on edge: 0 = Not at all Not being able to stop or control worryin = Not at all Worrying too much about different things: 1 = Several days Trouble relaxin = Not at all Being so restless that it is hard to sit still: 0 = Not at all Becoming easily annoyed or irritable: 0 = Not at all Feeling afraid as if something awful might happen: 0 = Not at all Total RADHA-7 score (0-4 normal; 5-9 mild; 10-14 moderate; 15-21 severe): 1 Source: Developed by Drs. Hari Vasquez, Cherise Coulter, Michael Whyte and colleagues, with an educational wale from [employer] Review of Systems Narrative Review of Systems - Neurological: Reports neuropathic pain in the foot. - Musculoskeletal: Denies new problems. 10-point ROS reviewed and negative except as noted in HPI Physical exam (Primary Care) Vital Signs: Last Vital Signs Temp 97.8 F 09/17/25 09:26 Pulse 100 09/17/25 09:26 BP 135/92 H 09/17/25 09:26 Pulse Ox 97 09/17/25 09:26 Oxygen Delivery Method Room Air 09/17/25 09:26 BMI result Body Mass Index 63.3 Tobacco/Smoking Status: Tobacco use Status Tobacco use date assessed 09/17/25 09/17/25 09:25 Patient Tobacco Use Status Never used Tobacco 09/17/25 09:25 PHQ-9: PHQ-9 Score PHQ-9: Total score 3 09/17/25 09:25 Thrive Assessment: Date of Thrive Assessment Date Thrive assessed 09/14/25 09/17/25 09:25 Currently or been in a relationship where the following occur: No concerns reported Narrative Physical Exam General: Well-appearing, in no acute distress. Vital signs: Within normal limits. HEENT: Normocephalic, atraumatic. PERRLA, EOMI. Conjunctiva clear, sclera anicteric. Oropharynx clear, mucous membranes moist. TMs intact bilaterally. Neck: Supple, no lymphadenopathy, no thyromegaly, no JVD or carotid bruits. Cardiovascular: RRR, normal S1/S2, no murmurs, rubs, or gallops. Peripheral pulses 2+ and symmetric. No edema. Respiratory: Lungs clear to auscultation bilaterally, no wheezes, rales, or rhonchi. Normal effort. Abdomen: Soft, non-tender, non-distended. Normoactive bowel sounds. No hepatosplenomegaly, no masses. MSK: Full range of motion, no joint swelling or deformity. Normal gait. Skin: Warm, dry, intact. No rashes, lesions, or pallor. Notable for a depression in the left area, possibly related to a previous cellulitis. Neuro: Alert and oriented x3. Cranial nerves II-XII intact. Strength 5/5 throughout. Sensation intact. Reflexes 2+ symmetric. Normal coordination and gait. Psych: Appropriate mood and affect. Normal judgment and insight. Coding Level of Care Code New Pt Level 4 (64529) Diagnoses Type 2 diabetes mellitus with diabetic neuropathy E11.40 Hyperlipidemia E78.5 Elevated liver enzymes R74.8 Fatty liver K76.0 History of cellulitis Z87.2 History of cancer Z85.9 Iron deficiency anemia D50.9 Assessment & Plan Assessment & Plan (1) Type 2 diabetes mellitus with diabetic neuropathy: Code(s): E11.40 - Type 2 diabetes mellitus with diabetic neuropathy, unspecified Category: Medical (2) Hyperlipidemia: Code(s): E78.5 - Hyperlipidemia, unspecified Category: Medical (3) Elevated liver enzymes: Code(s): R74.8 - Abnormal levels of other serum enzymes Category: Medical (4) Fatty liver: Code(s): K76.0 - Fatty (change of) liver, not elsewhere classified (5) History of cellulitis: Code(s): Z87.2 - Personal history of diseases of the skin and subcutaneous tissue (6) History of cancer: Code(s): Z85.9 - Personal history of malignant neoplasm, unspecified (7) Iron deficiency anemia: Code(s): D50.9 - Iron deficiency anemia, unspecified Plan Consent The patient provided verbal consent for a blood draw to be performed during the visit. Patient was informed and verbally consented to the use of an ambient scribe for clinic note documentation during this visit. Plan 1. Diabetes Mellitus - Continue current insulin and Ozempic regimen. - Place referral to podiatry for diabetic foot screening. - Patient advised to keep upcoming ophthalmology appointment on September 25. - Labs ordered today will include a check of hemoglobin A1c. 2. Fatty Liver Disease - Order an abdominal sonogram to evaluate the liver, as one has never been performed. - Discussed the risk of progression to fibrosis, cirrhosis, and the potential need for transplant if unmanaged. - Will attempt to obtain records regarding medication previously offered by sales recruiting coordinator. 3. Anemia - Check hemoglobin as part of today's bloodwork, given recent history of blood transfusion. 4. Neuropathic Pain - Continue gabapentin as prescribed. Discussion Notes I reviewed the patient's extensive medical history during this new patient visit. We discussed her fatty liver disease, and I explained the importance of evaluation and management to prevent progression to cirrhosis and a potential need for transplant. Consequently, I am ordering a sonogram of her liver. We also addressed necessary health maintenance, including referrals for her annual mammogram and a diabetic foot exam with a employment law specialist. I emphasized the importance of her upcoming diabetic eye exam. We will be drawing blood today and will make arrangements to obtain her outside medical records for care continuity. We will discuss the results of her tests in one week. Patient Instructions - Please go to the lab to have your blood drawn today. - Our office will give you referrals for a mammogram, a employment law specialist (foot doctor), and a liver ultrasound. - Please keep your scheduled appointment with the eye doctor on September 25. - We will contact you in about a week to review your test results. - Please ensure our office receives your medical records from your other doctors. Medical Decision Making The patient is a 45-year-old female with multiple chronic conditions who presents to [facility]. Her complex history includes diabetes mellitus, a history of cancer treated with radiotherapy, fatty liver disease, and a recent blood transfusion. The primary goals of this visit are to ensure continuity of care, address immediate health needs, and establish a plan for ongoing management. A liver sonogram is indicated to evaluate the patient's reported fatty liver disease, for which she has never had imaging; this is critical to assess for fibrosis or cirrhosis. Given her diabetes, referrals for podiatry and continued ophthalmology follow-up are essential for preventing complications. Routine cancer screening with a mammogram is also due. Comprehensive lab work, including CBC, CMP, A1c, lipids, and vitamin levels, is necessary to assess her anemia, metabolic control, and nutritional status. Obtaining outside records is a priority to understand the full scope of care provided by her sales recruiting coordinator, oncologist, and woodworking bench carpenter. Total time spent caring for the patient today was 30 minutes. This includes time spent before the visit reviewing the chart, time spent documenting, and time spent reviewing laboratory results, diagnostic imaging, medications, performing a medically necessary evaluation, counseling on diagnoses, care coordination, ordering appropriate tests, ordering appropriate medications, review of tests performed by other providers, reporting test results with the patient, communication with other healthcare providers. Orders: Orders Hepatitis B Surface Antibody Today Z13.9 - Encounter for screening, unspecified Hepatitis C Antibody Today Z13.9 - Encounter for screening, unspecified HIV Ab/Ag Today Z13.9 - Encounter for screening, unspecified UA CC w/rflx Micro + Cult Today Z13.9 - Encounter for screening, unspecified Vitamin B12 and Folate Today Z13.9 - Encounter for screening, unspecified MM screening mammo BI Today Z12.31 - Encounter for screening mammogram for malignant neoplasm of breast US abdomen complete Today E78.5 - Hyperlipidemia, unspecified, R74.8 - Abnormal levels of other serum enzymes Complete Blood Count Auto Diff Today Z13.9 - Encounter for screening, unspecified Hepatitis B Surface Antigen Today Z13.9 - Encounter for screening, unspecified Magnesium Today Z13.9 - Encounter for screening, unspecified TSH reflex Free T4 Today Z13.9 - Encounter for screening, unspecified Vitamin D 1,25 dihydroxy Today Z13.9 - Encounter for screening, unspecified Referrals Podiatry Referral E11.9 - Type 2 diabetes mellitus without complications
[2025-09-17 09:26] VITALS: BP 135/92; PULSE 100; TEMP 36.6; O2SAT 97; BMI 63.3
--- OUTSIDE RECORDS SUMMARY | 2025-09-17 10:20 | XMS_ITS | Encounter Summary ---
Author Organization [employer] Address [address] [place] [address] Care Team Providers Care Top Printing Press Operator Name Role Phone Tess Ruvalcaba MD Primary Care Provider [phone] Reason for Visit * Reason Comments Med Refill Encounter Details Date Type Department Care Team ([facility] st Contact Info) Description 02/28/2025 Refill [facility] CHC MED & PEDS [address] [place], [place] [phone] Tess Ruvalcaba MD [address] [place] [address] Social History Tobacco Use Types Packs/Day Years [...] housing situation today? I have aiden bhandari 01/31/[address] you li ve. Do you have problems with any of the following? None of the above 01/31/2025 Food Insecurity Answer Date Recorded Within the past 12 months, y ou worried that your food would run out before you got money to buy more: Never True 01/31/2025 Within the past 12 months,th e food you bought just didn't last and you didn't have enough money to get more: Never True 10/2025 Transportation Answer Date Recorded In the past 12 months, has l ack of transportation kept you from medical appts, meetings, work or from getting things needed for daily living? No 01/31/2025 Utilities Answer Date Recorded In the past 12 months, has t he electric, gas, oil or water company threatened to shut off services in your home? No 01/31/2025 Depression Answer Date Recorded Patient Health Questionnaire-2 Score 2 09/09/2023 Internet Access Answer Date Recorded Internet Access Q1 Yes 01/31/2025 Internet Access Q2 Not on file 01/31/2025 Comments No Sex and Gender Information Value Date Recorded Sex Assigned at Female 09/21/2022 10:32 AM EDT Legal Sex Female 10:32 AM EDT Gender Identity Female 09/21/2022 10:32 AM EDT Sexual Orientation Straight 09/21/2022 10 :32 AM EDT documented as of this encounter Plan of Treatment Upcoming Encounters Date Type Department Care Team (Late st Contact Info) Description 12/17/2025 2:15 PM EST Office Visit [facility] CHC ADULT DENTAL [address] [place] [address] Keith Barnes documented as of this encounter Visit Diagnoses Not on filedocumented in this encounter Additional Health Concerns Assessment Noted Time PHQ-9 Depression Total Score: 4 09/09/20 23 2:36 PM EDT documented as of this encounter Care Teams Top Printing Press Operator Relationship Specialty Start Date End Date Tess Ruvalcaba MD [address] [place] [address] PCP - General Family Medicine 11/24/17 documented as of this encounter
--- OUTSIDE RECORDS SUMMARY | 2025-09-17 10:20 | XMS_ITS | Encounter Summary ---
Author Organization [email or web address] [facility] Address [address] [place] [address] Care Team Providers Care Town Manager Name Role Phone Tess Ruvalcaba MD Primary Care Provider [phone] Encounter Details Date Type Department Care Team (Late Contact Info) Description 12/15/2022 Telephone [facility] MED & PEDS [address] [place] [address] Tess Ruvalcaba MD [address] [place] [address] Social History Tobacco Use Types Packs/Day Years [...] Encounters Date Type Department Care Team (Late Contact Info) Description 12/17/2025 2:15 PM EST Office Visit [facility] ADULT DENTAL [address] [place] [address] Keith Barnes documented as of this encounter Visit Diagnoses Not on filedocumented in this encounter Care Teams Town Manager Relationship Specialty Start Date End Date Tess Ruvalcaba MD [address] [place] [address] PCP - General Family Medicine 11/24/17 documented as of this encounter
--- OUTSIDE RECORDS SUMMARY | 2025-09-17 10:20 | XMS_ITS | Encounter Summary ---
Author Organization [employer] Address [address] [place] [address] Care Team Providers Care Digital Computer Operator Name Role Phone Tess Ruvalcaba MD Primary Care Provider [phone] Encounter Details Date Type Department Care Team (Latest Contact Info) Description 03/15/2019 Abstract [facility] CONVERSIONS Dental, Provider, DDS Social History Tobacco [...] Description 12/17/2025 2:15 PM EST Office Visit [facility] CHC ADULT DENTAL [address] [place] [address] Keith Barnes documented as of this encounter Visit Diagnoses Not on filedocumented in this encounter Care Teams Digital Computer Operator Relationship Specialty Start Date End Date Tess Ruvalcaba MD [address] [place] [address] PCP - General Family Medicine 11/24/17 documented as of this encounter
--- OUTSIDE RECORDS SUMMARY | 2025-09-17 10:21 | XMS_ITS | Encounter Summary ---
Author Organization [employer] Address [address] [place] [address] Care Team Providers Care Auxiliary Plant Operator Name Role Phone Tess Ruvalcaba MD Primary Care Provider [phone] Reason for Visit * Reason Onset Date Comments PT1 09/02/2023 Encounter Details Date Type Department Care Team ([facility] st Contact Info) Description 09/02/2023 Telephone [facility] CHC MED & PEDS [address] [place], [place] [phone] Tess Ruvalcaba MD [address] [place] [address] PT1 Social History Tobacco Use Types Packs/Day [...] 09/02/2023 11:55 AM EDT Tc from [facility] (certified social workers in health care) requesting PT1 transportation for pt. Start Date: 09/09/2023 Time: 2:00 PM Visits: n/a Address: [address] [place] [address] Facility: [facility] Wheel Chair: n/a Ventilating Engineer Needed: n/a documented in this encounter Plan of Treatment Upcoming Encounters Date Type Department Care Team ([facility] st Contact Info) Description 12/17/2025 2:15 PM EST Office Visit [facility] CHC ADULT DENTAL [address] [place] [address] Keith Barnes documented as of this encounter Visit Diagnoses Not on filedocumented in this encounter Additional Health Concerns Assessment Noted Time PHQ-9 Depression Total Score: 0 04/15/20 23 2:08 PM EDT documented as of this encounter Care Teams Auxiliary Plant Operator Relationship Specialty Start Date End Date Tess Ruvalcaba MD [address] [place] [address] PCP - General Family Medicine 11/24/17 documented as of this encounter
--- OUTSIDE RECORDS SUMMARY | 2025-09-17 10:21 | XMS_ITS | Clinical Summary ---
Author Organization [address] [place] [address] Address [address] [place] [address] Phone Care Team Providers Care Cottage Parent Name Role Phone Tess Ruvalcaba MD Primary Care Provider [phone] Allergies No known active allergies Medications cholecalciferol (VITAMIN D-3) 1,250 mcg (50,000 unit) [...] (BMI) of 60.0 to 69.9 in adult ([facility] V24, [facility] V28) 09/05/2024 Endometrial cancer ([facility] V24, [facility] V28) Anemia 11/01/2020 Diabetes mellitus ([facility] V24, [facility] V28) 09/2018 Medical History Medical History Date Comments History of abdominal hysterectomy 10/04/2018 DX:History of abdominal hysterectomy Social History Tobacco Use Types Packs/Day Years Used Date Smoking Tobacco: Never Smokeless Tobacco: Never Alcohol Use Standard Drinks/Week Comments No 0 (1 standard drink = 0.6 oz pur e alcohol) Comments Unknown Sex and Gender Information Value Date Recorded Sex Assigned at Not on file Legal Sex Female 12:53 PM EST Gender Identity Not on file Sexual Orientation Not on file Obstetrics History Last Filed [...] Cancer Screening 1981 COVID-19 Vaccine (#1) 1986 Diabetes: Annual Foot Exam 1991 Diabetes: Annual Retina Eye Exam 1991 DTaP,Tdap,and Td Vaccines (1 - Tdap) 2000 Hepatitis B Vaccines (1 of 3 - 19+ 3-dose series) 2000 Pneumococcal Vaccine: Pediatrics (0 to 5 Years) and At-Risk Patients (6 to 49 Years) (1 of 2 - PCV) 2000 Cervical Cancer Screening: P ap Smear 2002 HPV Vaccines (1 - 3-dose SCD M series) 2008 HIV Screening 10/20/2022 Hepatitis C Screening 10/20/2022 Social Influencers of Health Screening 10/20/2022 Diabetes: Annual Urine Albumin-Creatinine Ratio (uACR) 11/04/2022 Diabetes: Blood Sugar Contro l Test (HGBA1C) 10/31/2024 05/01/2024, 05/01/2024 Depression Screening 11/22/2024 Diabetes: Annual GFR (Glomerular Filtration Rate) 03/13/2025 03/13/2024 Influenza Vaccine (#1) 2025 Cholesterol Screening (Lipid Panel) 12/25/2026 12/25/2021 RSV Immunization Adult Patients (1 - 1-dose 75+ series) 2056 HIB Vaccines Aged Out No longer eligi [...] patient's age to complete this topic Meningococcal B Vaccine Aged Out No l onger eligible based on patient's age to complete [...] Maintenance Results * (ABNORMAL) Hemoglobin A1c (05/01/2024) Hemoglobin A1C 10.2(A) <=6.5 % Blood Venous blood specimen / Unknown [facility] Provider LAB BLOOD ORDERABLES Julissa l Result * Annual BMP Blood Test (03/13/2024) Annual BMP Blood Test Abstracted [facility] Provider HEALTH MAINTENANCE Final Result * (ABNORMAL) Lipid panel (12/25/2021) LDL/HDL Ratio 4 0 - 4 Triglycerides 179(A) 0 - 150 mg/dL Cholesterol 196 0 - 200 mg/dL HDL 45 >=40 mg/dL LDL Cholesterol 116(A) 0 - 100 mg/dL Blood Venous blood specimen / Unknown Historical Provider LAB BLOOD ORDERABLES Julissa l Result from Last 3 Months or Most Recently Relevant to Health Maintenance Insurance [place] - [place] Advance Directives Documents on File Type Date Recorded Patient Punchboard Stuffer Expl anation Health Care Decision (hx) 04/11/2021 AD YUEN DIRECTIVE Health Care Decision (hx) 04/11/2021 AD YUEN DIRECTIVE Health Care Decision (hx) 04/11/2021 AD YUEN DIRECTIVE Health Care Decision (hx) 04/11/2021 AD YUEN DIRECTIVE Health Care Decision (hx) 04/11/2021 AD YUEN DIRECTIVE Health Care Decision (hx) 04/11/2021 AD YUEN DIRECTIVE Care Teams Cottage Parent Relationship Specialty Start Date End Date Tess Ruvalcaba MD [address] [place] [phone] PCP - General 02/23/18
--- OUTSIDE RECORDS SUMMARY | 2025-09-17 10:21 | XMS_ITS | Clinical Summary ---
Author Organization [employer] Address [address] [place] [address] 7 [place] [address] Care Team Providers Care Cage Unloader Name Role Phone Tess Ruvalcaba MD Primary Care Provider [phone] Allergies Active Allergy Reactions Criticality Noted Date Comments Cat Danmarcia 08/31/2023 Medications glucose blood (FREESTYLE LITE) test strip Check BS subcutaneous bid 100 each 11 023 Active Alcohol Swabs 70 % pads Use tid as needed to check sugars 100 each 11 024 Active cholecalciferol VITAMIN D (Vitamin D-3) 50 MCG (1999) capsule TAKE ONE CAPSULE BY MOUTH TWICE DAILY 180 capsule 3 024 Active Blood Glucose Monitoring Suppl (Blood Glucose Monitor System) w/Device kitIndications:T ype 2 diabetes mellitus without complication, without long-term current use of insulin ([facility]) Use to check BS 4 times a day or as needed 1 kit 024 Active Continuous Glucose Sensor (FreeStyle Pat 3 Sensor) [facility] USE TO check BLOOD SUGAR AND CHANGE EVERY 14 DAYS 024 Active insulin lispro (HumaLOG KWIKPEN) 100 UNIT/ML injection Inject 10 Units under the skin with breakfast, with lunch, and with evening meal. Active Vivelle-Dot 0.025 MG/24HR APPLY ONE PATCH TOPICALLY EVERY WEDNESDAY AND Wednesday 025 Active Lantus SoloStar 100 UNIT/ML pen INJECT 30 UNITS SUBCUTANEOUSLY AT BEDTIME 025 Active Ozempic, 2 MG/DOSE, 8 MG/3ML solution pen-injector INJECT TWO MG SUBCUTANEOUSLY ONCE PER WEEK Active Jardiance 25 MG TAKE ONE TABLET BY MOUTH EVERY MORNING 30 tablet 5 Active TRUEplus Lancets 33G misc TEST BLOOD SUGAR TWICE DAILY 60 each Active pen needle 32G x 4 mm misc Inject under the skin 4 times daily. Use as instructed 100 each Active gabapentin (Neurontin) 300 MG capsuleIndicatio ns:Diabetic polyneuropathy associated with type 2 diabetes mellitus (HCC) Take 1 capsule (300 mg) by mouth 3 times daily. 90 capsule 3 025 2025 Active gabapentin (Neurontin) 300 MG capsuleIndicatio ns:Diabetic polyneuropathy associated with type 2 diabetes mellitus (HCC) Take 1 capsule (300 mg) by mouth 3 times daily. 90 capsule 11 025 2024 Discontinued(R eorder (will not trigger notification to Pharmacy)) Active Problems Problem Noted Date Diagnosed Date Morbid obesity ([facility]) 02/16/2023 Adenocarcinoma of uterus ([facility]) 12/29/2018 Diabetes mellitus 04/01/2018 Assessment & Plan (12/26/2024 4:06 PM EST): Continue meds management as per endocrinology.Ozempic dose just increased last week per patient. Vitamin D deficiency 11/25/2017 Encounters Date Type Department Care Team Description 09/03/2025 Telephone [facility] [address] [place] [address] Tess Ruvalcaba MD Med Refill 07/05/2025 2:00 PM EDT Office Visit [facility] [address] [place] [address] Chrissy Perez DDS 06/27/2025 Telephone [facility] [address] [place] [address] Tess Ruvalcaba MD 06/26/2025 Telephone [facility] [address] [place] [address] Tess Ruvalcaba MD Prior Authorization 06/19/2025 1:00 PM EDT Office Visit [facility] [address] [place] [address] Chrissy Perez DDS from Last 3 Months Immunizations Immunization Administration Dates Next Due Hep B, adult 11/25/2017 Influenza Injectable Quadriv alant Preservative Free IIV4 MDCK 09/03/2021 Influenza injectable quadriv alent IIV4 with preservative 10/17/2019,09/01/2018,11/24/2017 Influenza injectable quadriv alent preservative free 09/09/2023,08/22/2020 Influenza, Injectable, MDCK, preservative free 08/03/2024 Tdap 07/15/2018 Social History Tobacco Use Types [...] Sign Reading Time Taken Comments Blood Pressure 128/70 06/14/2025 1:05 PM EDT Pulse 70 06/14/2025 1:05 PM EDT Temperature 37.1 C (98.7 F) 02/14/2025 10:08 AM EDT Respiratory Rate 20 02/14/2025 10:08 AM EDT Oxygen Saturation 95% 02/14/2025 10:08 AM EDT Inhaled Oxygen Concentration - - Weight 152 kg (335 lb 3.2 oz) 12/26/2024 11:30 A M EST Height 156.2 cm (5' 1.5 ) 12/26/2024 11:30 AM ES T Body Mass Index 62.31 12/26/2024 11:30 AM EST Plan of Treatment Upcoming Encounters Date Type Department Care Team (Late st Contact Info) Description 12/17/2025 2:15 PM EST Office Visit [facility] [address] [place] [address] Keith Barnes Health Maintenance Due Date Last Done Comments Disability Screening 1981 Diabetes: Foot Exam 1991 Family Planning (PISQ) 1996 HPV Vaccines (1 - 3-dose series) 1996 Pneumococcal Vaccine: Pediatrics (0 to 5 Years) and At-Risk Patients (6 to 49) Years (1 of 2 - PCV) 2000 Hepatitis B Vaccines (2 of 3 - 19+ 3-dose series) 12/23/2017 11/25/2017 Mammogram 2021 Diabetes: Urine Protein Screening 01/01/2023 01/01/2022, 10/16/2020, 02/12/2020 Depression Screening 09/09/2024 09/09/2023, 09/09/20 Diabetes: Hemoglobin A1C 03/05/2025 025, 07/28/2024, 05/01/2024, Additional history exists Lipid Panel 03/13/2025 03/13/2024, 12/23, 10/16/2020 COVID-19 Vaccine ( season) 2025 12/12/2021, 01/17/2021, 12/15/2020 Influenza Vaccine (#1) 2025 , 09/09/2023, 09/03/2021, Additional history exists Dental Oral Exam 12/16/2025 06/14/2025, 08/2023, 02/16/2018 Dental Prophylaxis 12/16/2025 06/14/2025, 0 08/03/2024, 08/31/2023, Additional history exists Alcohol/Substance Use Screening 12/26/2025 12/26/2024 SDOH Screening 01/31/2026 01/31/2025 Dental X-Ray: Bitewings 06/15/2026 06/14/20, 08/31/2023, 02/16/2018 Tobacco Screening 07/05/2026 07/05/2025 Dental X-Ray: Full Mouth 09/01/2026 08/31/2023, 01/21 Eye Exam 09/22/2026 09/22/2024 DTaP/Tdap/Td Vaccines (2 - Td or Tdap) 07/15/2028 07/15/2018 Zoster Vaccines (1 of 2) 2031 RSV Patients and Patients Aged 60 years or older (1 - 1-dose 75+ series) 2056 HIV Screening Completed 02/12/2020 Hepatitis C Screening Completed 02/12/2020 HIB Vaccines Aged Out No longer eligi [...] Procedure Name Priority Date/Time Associated Diagnosis Comments CASE PRESENTATION, DETAILED AND EXTENSIVE TREATMENT PLANNING Routine 07/05/2025 2:00 PM EDT 2 O RESIN-BASED COMPOSITE - 1 SURF, POSTERIOR Routine 07/05/2025 2:00 PM EDT 3 O COMPOSITE FILLING Routine 07/05/2025 12:00 AM EDT CASE PRESENTATION, DETAILED AND EXTENSIVE TREATMENT PLANNING Routine 06/19/2025 1:00 PM EDT 31 LO RESIN-BASED COMPOSITE - 2 SURF, POSTERIOR Routine 06/19/2025 1:00 PM EDT PROPHYLAXIS - ADULT Routine 06/14/2025 1 :00 PM EDT Dental caries BITEWINGS - 4 RADIOGRAPHIC IMAGES Routine 06/14/2025 1:00 PM EDT Dental caries PERIODIC ORAL EVALUATION - ESTABLISHED PATIENT Routine 06/14/2025 1:00 PM EDT Dental caries POCT GLYCATED HEMOGLOBIN, TOTAL Routine 12/05/2024 11:14 AM EST Type 2 diabetes mellitus with hyperglycemia, with long-term current use of insulin ([facility]) DIABETES EYE EXAM Routine 09/22/2024 1:20 PM EDT LIPID PANEL, STANDARD Routine 03/13/2024 10:20 AM EDT INTRAORAL - COMPLETE SERIES OF RADIOGRAPHIC IMAGES Routine 08/31/2023 3:00 PM EDT ALBUMIN, RANDOM URINE W/CREATININE Routine 01/01/2022 10:22 AM EST [facility] HISTORICAL HEPATITIS C ANTIBODY Routine 02/12/2020 10:28 AM EDT [facility] HISTORICAL HIV AB/AG Routine 02/12/2020 10:28 AM EDT from Last 3 Months or Most Recently Relevant to Health Maintenance Results * (ABNORMAL) POCT HGB A1C (12/05/2024 11:14 AM EST) Hemoglobin A1C 10,229,670 .0(A) 4.0 - 6.0 % QC Media Lot # [id number] Blood 12/05/2024 11:1 4 AM EST Ana Barnes MD POINT OF CARE TEST ENTER/ED IT ORDERABLES Edited Result - Final * Diabetes Eye Exam (09/22/2024 1:20 PM EDT) us Historical Provider HEALTH MAINTENANCE Final Result * Lipid Panel, Standard (03/13/2024 10:20 AM EDT) Triglycerides 142 <150 mg/dL [facility] Comment:Desirable Triglyceri de: less than 150 mg/dLBorderline High Triglyceride 150-199 mg/dLHigh Triglyceride: 200-499 mg/dLVery High Triglyceride: greater than or equal to 5OO mg/dL Cholesterol 174 <200 mg/dL [facility] Comment:Desirable Cholestero l: less than 200 mg/dLBorderline High Cholesterol: 200-239 mg/dLHigh Cholesterol: greater than 239 mg/dL LDL Cholesterol Calculated 97 <100 mg/dL [facility] Comment:Desirable LDL: less than 100 mg/dLNear Optimal/Above Optimal LDL: 110- 129 mg/dLBorderline High LDL: 130-159 mg/dLHigh LDL: 160-189 mg/dLVery High LDL: greater than or equal to 190 mg/dL HDL Cholesterol 49 >40 mg/dL [facility] Comment:Desirable HDL: great er than 40 mg/dL Note: This HDL assay may give artificially low results in patients with liver disease. 03/13/2024 10:2 0 AM EDT 03/13/2024 2:45 PM EDT us Tess Ruvalcaba MD LAB BLOOD ORDERABLES Final Re sult [facility] [address] [place] [phone] * ALBUMIN, RANDOM URINE W/CREATININE (01/01/2022 10:22 AM EST) Microalbumin Urine 0.7 See Note: mg/dL [facility] Comment: Reference Range: Reference Range Not established Microalb/Creat Ratio 9 <30 mcg/mg creat [facility] Comment: The ADA defines abnormalities in albumin excretion as follows: Albuminuria Category Result (mcg/mg creatinine) Normal to Mildly increased <30 Moderately increased 30-299 Severely increased > OR = 300 The ADA recommends that at least two of three specimens collected within a 3-6 month period be abnormal before considering a patient to be within a diagnostic category. Creatinine, Urine 80 20 - 275 mg/dL [facility] 01/01/2022 10:2 2 AM EST Tess Ruvalcaba MD LAB URINE ORDERABLES Final Re sult Performing Organization Address [facility] Phone Number [facility] [address] * HEPATITIS C ANTIBODY (02/12/2020 10:28 AM EDT) HEPATITIS C ANTIBODY NONREACTIVE NONREACTIVE [facility] Comment: Antibodies to HCV not detected; does not exclude early acute HCV infection. 02/12/2020 10:2 8 AM EDT Tess Ruvalcaba MD HISTORICAL/NON ORDERABLE LABS Final Result Performing Organization Address [facility] [address] * HIV AB/AG (02/12/2020 10:28 AM EDT) HIV AG/AB NONREACTIVE [facility] Comment: HIV-1 p24 Ag and/or HIV-1/HIV-2 Ab not detected. A test result that is nonreactive does not exclude the possibility of exposure to or infection with HIV-1 and/or HIV-2. Nonreactive results in this assay for individuals with prior exposure to HIV-1 and/or HIV-2 may be due to antigen and antibody levels that are below the limit of detection of this assay. The [employer] HIV Ag/Ab Combo assay result and supplemental assay results should be interpreted in conjunction with the patient's clinical presentation, history and other laboratory results. If the results are inconsistent with clinical evidence, additional testing is suggested to confirm the result. 02/12/2020 10:2 8 AM EDT Tess Ruvalcaba MD HISTORICAL/NON ORDERABLE LABS Final Result [facility] [address] from Last 3 Months or Most Recently Relevant to Health Maintenance Insurance [place] [id number] DENTAL - HSN PARTIAL (MEDICAID) Care Teams Cage Unloader Relationship Specialty Start Date End Date Tess Ruvalcaba MD [address] [place] [phone] PCP - General Family Medicine 11/24/17
--- OUTSIDE RECORDS SUMMARY | 2025-09-17 10:21 | XMS_ITS | Encounter Summary ---
Author Organization [employer] Address [address] [facility] 7t [place] [address] Care Team Providers Care Printer Helper Name Role Phone Tess Ruvalcaba MD Primary Care Provider [phone] Encounter Details Date Type Department Care Team ([facility] st Contact Info) Description 09/27/2024 Orders Only [facility] [address] [place], [place] [phone] ProviderJames MD Social History Tobacco Use Types [...] is your housing situation today? I have aidenamber bhandari 09/06/[address] you [...] Description 12/17/2025 2:15 PM EST Office Visit [facility] [address] [place] [address] Keith Barnes documented as of this encounter Procedures Procedure Name Priority Date/Time Associated Diagnosis Comments DIABETES EYE EXAM Routine 09/22/2024 1:20 PM EDT documented in this encounter Results * Diabetes Eye Exam (09/22/2024 1:20 PM EDT) us Historical Provider HEALTH MAINTENANCE Final Result documented in this encounter Visit Diagnoses Not on filedocumented in this encounter Additional Health Concerns Assessment Noted Time PHQ-9 Depression Total Score: 4 09/09/20 23 2:36 PM EDT documented as of this encounter Care Teams Printer Helper Relationship Specialty Start Date End Date Tess Ruvalcaba MD [address] [place] [address] PCP - General Family Medicine 11/24/17 documented as of this encounter
--- OUTSIDE RECORDS SUMMARY | 2025-09-17 10:21 | XMS_ITS | Encounter Summary ---
Author Organization [employer] Address [address] [address] Care Team Providers Care Aviation Metalsmith Name Role Phone Tess Ruvalcaba MD Primary Care Provider [phone] Reason for Visit * Reason Onset Date Comments Medication Question 04/27/2024 Encounter Details Date Type Department Care Team ([facility] st Contact Info) Description 04/27/[address] [facility] [address] [place] [address] Tess Ruvalcaba MD [address] [place], [place] [phone] Medication Question Social History Tobacco Use Types [...] states was advised by pharmacy to call [facility] in regards to the medication dulaglutide (Trulicity) 4.5 MG/0.5ML solution pen-injector states only have the 3mg in stock and has been with out this medication for a month documented in this encounter Plan of Treatment Upcoming Encounters Date Type Department Care Team (Late st Contact Info) Description 12/17/2025 2:15 PM EST Office Visit [facility] [address] [place] [address] Keith Barnes documented as of this encounter Visit Diagnoses Not on filedocumented in this encounter Additional Health Concerns Assessment Noted Time PHQ-9 Depression Total Score: 4 09/09/20 23 2:36 PM EDT documented as of this encounter Care Teams Aviation Metalsmith Relationship Specialty Start Date End Date Tess Ruvalcaba MD [address] [place] [address] PCP - General Family Medicine 11/24/17 documented as of this encounter
--- OUTSIDE RECORDS SUMMARY | 2025-09-17 10:21 | XMS_ITS | Encounter Summary ---
Author Organization [employer] Address [address] [place] [address] 7 [place] [address] Care Team Providers Care Life Science Technical Officer Name Role Phone Tess Ruvalcaba MD Primary Care Provider [phone] Encounter Details Date Type Department Care Team ([facility] st Contact Info) Description 12/28/2024 Orders Only [facility] [address] [place], [place] [phone] Ana Barnes MD [address] [place] [address] Type 2 diabetes mellitus with hyperglycemia, with long-term current use of insulin ([facility]) (Primary Dx) Social History Tobacco Use Types Packs/Day Years [...] 12/17/2025 2:15 PM EST Office Visit [facility] [address] [place] [address] Keith Barnes Scheduled Orders Name Type Priority Associated Diagnoses Orde r Schedule Hemoglobin A1c Lab Routine Type 2 diabetes mellitus with hyperglycemia, with long-term current use of insulin ([facility]) Expected: 12/28/2024 (Approximate), Expires: 12/28/2025 documented as of this encounter Visit Diagnoses Diagnosis Type 2 diabetes mellitus with hyperglycemia, with long-term current use of insulin ([facility])- Primary documented in this encounter Additional Health Concerns Assessment Noted Time PHQ-9 Depression Total Score: 4 09/09/20 23 2:36 PM EDT documented as of this encounter Care Teams Life Science Technical Officer Relationship Specialty Start Date End Date Tess Ruvalcaba MD [address] [place] [address] PCP - General Family Medicine 11/24/17 documented as of this encounter
--- OUTSIDE RECORDS SUMMARY | 2025-09-17 10:21 | XMS_ITS | Encounter Summary ---
Author Organization [employer] Address [address] [address] Care Team Providers Care Helicopter Mechanic Name Role Phone Tess Ruvalcaba MD Primary Care Provider [phone] Reason for Visit * Reason Onset Date Comments Nurse Triage 02/08/2024 Encounter Details Date Type Department Care Team ([facility] st Contact Info) Description 02/08/2024 Telephone [facility] [address] [place] [address] Tess Ruvalcaba MD [address] [place] [address] Nurse Triage Social History Tobacco Use Types [...] 02/08/2024 9:53 AM EDT Triage call with Chrisney Cuff Stitcher [place] [id number] Raul. Pt reports symptoms of cellulitis in left leg. Pt reports a history of this problem. Pt reports increased edema, swelling, redness and warmth ofthis left leg. Pt also has headache. Pt is advised to come to [facility] open till 8pm this evening. No available apts in [place] today. Pt agrees with this disposition and will come to [facility]. Pt already aware of home care. Insurance [...] become worse * Telephone Encounter - Danilo Brown 02/08/2024 8:48 AM EDT Symptoms: Fever, Leg Swelling - Not From Injury Outcome: Schedule an urgent appointment (within 1 hour) or talk to a nurse or provider soon Reason: Severe leg pain now The caller accepted this outcome documented in this encounter Plan of Treatment Upcoming Encounters Date Type Department Care Team (Late st Contact Info) Description 12/17/2025 2:15 PM EST Office Visit [facility] [address] [place] [address] Keith Barnes documented as of this encounter Visit Diagnoses Not on filedocumented in this encounter Additional Health Concerns Assessment Noted Time PHQ-9 Depression Total Score: 4 09/09/20 23 2:36 PM EDT documented as of this encounter Care Teams Helicopter Mechanic Relationship Specialty Start Date End Date Tess Ruvalcaba MD [address] [place] [address] PCP - General Family Medicine 11/24/17 documented as of this encounter
== END 2025-09-17 09:48 | disposition home or self-care (01) ==
LOC: HO.HMCFMS 09:21
PROVIDERS: PCP Student in an Organized Health Care Education/Training Program; Visit Provider Student in an Organized Health Care Education/Training Program
DX: E11.40 Type 2 diabetes mellitus with diabetic neuropathy, unspecified (principal); E78.5 Hyperlipidemia, unspecified; R74.8 Abnormal levels of other serum enzymes; K76.0 Fatty (change of) liver, not elsewhere classified; Z87.2 Personal history of diseases of the skin and subcutaneous tissue; Z85.9 Personal history of malignant neoplasm, unspecified; D50.9 Iron deficiency anemia, unspecified

== ENCOUNTER 2025-09-17 09:20 | Outpatient (REF) | payer OTHER, SELFPAY ==
--- OUTSIDE RECORDS SUMMARY | 2025-09-17 11:34 | XMS_ITS | Encounter Summary ---
Author Organization [facility] Address [facility] [place] [address] Care Team Providers Care Senior Lead Project Manager Name Role Phone Tess Ruvalcaba Primary Care Provider Unavailab le Reason for Visit * Reason Onset Date Comments Bariatric Weight Check 02/19/2022 Encounter Details Date Type Department Care Team Description 02/19/2022 Telephone General Surgery - [place] [address] [phone] Lesa Timmons, ,RDN,LDN [address] [phone] Bariatric Weight Check Social History Tobacco Use Types Packs/Day Years Used Date Smoking Tobacco: Never Smokeless Tobacco: Never Alcohol Use Standard Drinks/Week Comments No 0 (1 standard drink = 0.6 oz pur e alcohol) Alcohol Habits Answer Date Recorded How often do you have a drink containing alcohol ? Never 07/04/2020 How many drinks containing a lcohol do you have on a typical day when you are drinking? Not asked How often do you have six or more drinks on one occasion? Not asked Sex Assigned at Date Recorded Not on file COVID-19 Exposure Response Date Recorded In the last 10 days, have yo u been in contact with someone who was confirmed or suspected to have Coronavirus/COVID-19? Unable to assess 02/17/2022 7:40 AM EDT documented as of this encounter Miscellaneous Notes * Telephone Encounter - Lesa Timmons MS,RDN,QUINTENN - 02/19/2022 11:36 AM EDT Patient came for weight check on 02/18/22 and her weight was 350 lbs documented in this encounter Plan of Treatment Not on file documented as of this encounter Visit Diagnoses Not on filedocumented in this encounter Care Teams Senior Lead Project Manager Relationship Specialty Start Date End Date Tess Ruvalcaba PCP - General Family Practice 02/23/18 documented as of this encounter
--- OUTSIDE RECORDS SUMMARY | 2025-09-17 11:34 | XMS_ITS | Clinical Summary ---
Author Organization [facility] Address [address] [place] [address] Care Team Providers Care Cleaner And Polisher Name Role Phone Tess Ruvalcaba Primary Care Provider Unavailab le Allergies No known active allergies Medications Medication Sig Dispensed Refills Start Date End Date Status Ferrous Sulfate 324 (65 FE) MG Tab EC Take 1 Tab by mouth daily. 30 Tab 3 03/30/2018 Active Dulaglutide 0.75 MG/0.5ML Solution Pen-injector Inject into the skin. 0 Active Magnesium 100 MG CapIndications:Magne sium deficiency Take 3 Capsules by mouth daily for 30 days. 90 capsule 0 12/25/2021 Active Cholecalciferol (Vitamin D3) 1.25 MG (37932 UT) CapIndications:Vitam in D deficiency Take 1 Capsule by mouth once a week. 8 Capsule 0 05/10/2024 Active Active Problems Problem Noted Date Anemia 11/01/2020 Endometrial cancer 11/01/2020 Diabetes mellitus 04/01/2018 Class 3 severe obesity with body mass in dex (BMI) of 60.0 to 69.9 in adult 03/30/2018 Overview: Bariatric Surgery Program Surgeon: Initial visit date 12/23/17 [facility] Psychiatry clearance: Provider and date [facility]: [facility]: Done 01/11/18. Support groups: Dietitian-Dietary Clearance: Requested weight loss: Last Surgery appt prior to Surgery: Prior Authorization Number: Surgery date goal: Social History Tobacco Use Types Packs/Day Years [...] Assigned at Date Recorded Not on file Last Filed Vital Signs Vital Sign Reading Time Taken Comments Blood Pressure 121/83 04/10/2024 4:07 PM EDT Pulse 73 04/10/2024 4:07 PM EDT Temperature 36.4 C (97.5 F) 09/23/2021 1:51 PM EDT Respiratory Rate - - Oxygen Saturation - - Inhaled Oxygen Concentration - - Weight 153.8 kg (339 lb) 08/16/2024 10:13 AM EDT Height 157.5 cm (5' 2 ) 04/10/2024 4:07 PM EDT Body Mass Index 62 04/10/2024 4:07 PM EDT Plan of Treatment Health Maintenance Due Date Last Done Comments Covid-19 Vaccine (#1) 1981 PNEUMOCOCCAL VACCINE FOR HIG H RISK PATIENTS (#1) 2000 CERVICAL CANCER SCREENING 2002 BASELINE HEALTH EXAM 40-64 2021 MAMMOGRAM 2021 BMI CHECK/ADVISE 11/22/2024 04/10/2024, 12/2021, 09/23/2021, Additional history exists INFLUENZA (#1) 2025 09/03/2021 CHOLESTEROL SCREENING 12/25/2026 12/25/2021 DTAP/TDAP/TD (2 - Td or Tdap) 07/15/2028 07/15/2018 Care Teams Cleaner And Polisher Relationship Specialty Start Date End Date Tess Ruvalcaba PCP - General Family Practice 02/23/18
--- OUTSIDE RECORDS SUMMARY | 2025-09-17 11:34 | XMS_ITS | Encounter Summary ---
Author Organization [facility] Address [address] [place] [address] Care Team Providers Care Mountain Or Glacier Guide Name Role Phone Tess Ruvalcaba Primary Care Provider Unavailab le Reason for Visit * Reason Onset Date Comments REFERRAL 08/16/2024 Encounter Details Date Type Department Care Team Description 08/16/2024 Telephone Bariatric Surgery - [place] [address] [phone] Liliana Santoyo MS,RDN,LDN [address] [address] REFERRAL Social History Tobacco Use Types Packs/Day Years [...] Assigned at Date Recorded Not on file documented as of this encounter Miscellaneous Notes * Telephone Encounter - Sarah Stone - 08/16/2024 1:57 PM EDT Referral to [facility] placed and routed to Karen Begum for assistance with scheduling. * Telephone Encounter - Liliana Santoyo MS,MINOON,QUINTENN - 08/16/2024 10:37 AM EDT Please refer pt to Dr. Alice ramos is the surgeon documented in this encounter Plan of Treatment Not on file documented as of this encounter Visit Diagnoses Not on filedocumented in this encounter Care Teams Mountain Or Glacier Guide Relationship Specialty Start Date End Date Tess Ruvalcaba PCP - General Family Practice 02/23/18 documented as of this encounter
--- OUTSIDE RECORDS SUMMARY | 2025-09-17 11:34 | XMS_ITS | Encounter Summary ---
Author Organization [facility] Address [address] [place] [id number] Care Team Providers Care It Operations Manager Name Role Phone Tess Ruvalcaba Primary Care Provider Vianca navarrete Encounter Details Date Type Department Care Team Description 08/30/2023 Transfer Records Medical Records [address] [place] [address] Abstract, Provider Social History Tobacco Use Types Packs/Day Years [...] on file documented as of this encounter Plan of Treatment Not on file documented as of this encounter Visit Diagnoses Not on filedocumented in this encounter Care Teams It Operations Manager Relationship Specialty Start Date End Date Tess Ruvalcaba PCP - General Family Practice 02/23/18 documented as of this encounter
--- OUTSIDE RECORDS SUMMARY | 2025-09-17 11:34 | XMS_ITS | Encounter Summary ---
Author Organization [facility] Address [address] [place] [address] Care Team Providers Care E Learning Designer Name Role Phone Tess Ruvalcaba Primary Care Provider Vianca navarrete Encounter Details Date Type Department Care Team Description 08/09/2020 Transfer Records Medical Records [address] [place] [address] Abstract, Provider Social History Tobacco Use Types [...] Exposure Response Date Recorded In the last month, have you been in contact with someone who was confirmed or suspected to have Coronavirus / COVID-19? Unable to assess 08/06/2020 7:42 AM EDT documented as of this encounter Plan of Treatment Not on file documented as of this encounter Visit Diagnoses Not on filedocumented in this encounter Care Teams E Learning Designer Relationship Specialty Start Date End Date Tess Ruvalcaba PCP - General Family Practice 02/23/18 documented as of this encounter
--- OUTSIDE RECORDS SUMMARY | 2025-09-17 11:34 | XMS_ITS | Encounter Summary ---
Author Organization [facility] Address [address] [place] [address] Care Team Providers Care Quantitative Software Engineer Name Role Phone Tess Ruvalcaba Primary Care Provider Vianca navarrete Encounter Details Date Type Department Care Team Description 05/24/2023 Machine Wood Sander Reports Bariatric Surgery - [address] [place] [id number] Social History Tobacco Use Types Packs/Day Years [...] on filedocumented in this encounter Care Teams Quantitative Software Engineer Relationship Specialty Start Date End Date Tess Ruvalcaba PCP - General Family Practice 02/23/18 documented as of this encounter
[2025-09-17 13:15] LABS: Appearance Urine Clear; Glucose Urine UA >=1000 mg/dL (Negative); PH 5.5 (5.0-9.0); Specific Gravity - Urine >= 1.030 (1.005-1.025); UMIC TRIGGER UACC YES
[2025-09-17 13:19] LABS: MANUAL DIFF FLAG NO
[2025-09-17 13:29] LABS: UACC Culture Trigger YES
[2025-09-17 13:37] LABS: Hematocrit 46.8 % (37.0-47.0); Hemoglobin 14.0 g/dl (12.0-16.0); Imm Gran Abs Auto 0.01 X10*3/uL (0.00-0.03); Imm Gran Pct Auto 0.2 % (0.0-0.4); Lymphocytes Absolute Auto 3.0 X10*3/uL (1.2-4.9); Mean Corpuscular HGB Conc 29.9 g/dl (31.0-35.0); Mean Corpuscular Hemoglobin 26.3 pg (27.0-33.0); Mean Corpuscular Volume 87.8 fL (80.0-98.0); NRBC Abs Auto 0.000 X10*3/uL (0.0-0.012); NRBC Pct Auto 0.0 /100WBC (0.0-0.2); Platelet Count 268 X10*3/uL (160-400); Red Blood Count 5.33 X10*6/uL (4.20-5.50); White Blood Count 6.2 X10*3/uL (4.8-10.8)
[2025-09-17 14:04] LABS: Magnesium 2.1 mg/dL (1.6-2.6)
[2025-09-17 14:23] LABS: HBS Num1 1.11 mIU/mL (0-7.99); HBsAGNum1 0.52 S/CO (0.00-0.99); HIV Num 1 0.05 S/CO (0.00-0.99); Hepatitis B Surface Antigen Negative (Negative); ~HepC Num1 0.28 S/CO (0.00-0.79); ~Hepatitis B Surface Antibody NONREACTIVE (Nonreactive); ~Hepatitis C Antibody Nonreactive (Nonreactive)
[2025-09-17 14:25] LABS: Folate 6.4 ng/mL (> or = 4.0); Vitamin B12 555 pg/mL (200-900)
[2025-09-21 22:44] LABS: VITAMIN D (1,25 OH) D3 45 pg/mL; Vit D (1,25-Dihydroxy) Total 45 pg/mL (18-72); Vitamin D (1,25 OH) D2 <8 pg/mL
== END 2025-09-17 09:21 | disposition home or self-care (01) ==
LOC: HO.HKASLDS 09:20
PROVIDERS: Internal Medicine; PCP Student in an Organized Health Care Education/Training Program; Visit Provider Student in an Organized Health Care Education/Training Program
DX: E11.65 Type 2 diabetes mellitus with hyperglycemia (principal); E11.40 Type 2 diabetes mellitus with diabetic neuropathy, unspecified; K76.0 Fatty (change of) liver, not elsewhere classified; D64.9 Anemia, unspecified; E78.5 Hyperlipidemia, unspecified; R74.8 Abnormal levels of other serum enzymes; D50.9 Iron deficiency anemia, unspecified; Z87.2 Personal history of diseases of the skin and subcutaneous tissue; Z85.9 Personal history of malignant neoplasm, unspecified; Z79.4 Long term (current) use of insulin
CPT/HCPCS: 36415; 81001; 82607; 82652; 82746; 83036; 83735; 84443; 85025; 86706; 86803; 87086; 87147; 87340; 87389; 96127

== ENCOUNTER 2025-10-03 09:07 | Outpatient (AMB) | payer OTHER, SELFPAY ==
--- NOTE | 2025-10-03 09:11 | MHC.PC.OV ---
Vital Signs 10/03/25 09:14 Height 5 ft 2.2 in Weight 346 lb 4 oz BMI 62.9 BP 156/73 H Blood Pressure Location Lt radial Position Sitting Respiration 22 H Pulse 103 H Pulse Source Monitor Temp 97.8 F Temp Source Oral Pulse Oximetry (%) 96 Oxygen Delivery Method Room Air Intake Visit Reasons: 2 wk f/u - lab review Detention Deputy Required: No Accompanied by: Self / Same As Patient Allergies No Known Allergies Allergy (Verified 10/03/25 09:13) Medication List - Last Reconciled 10/03/25 by Raphael Buckner MD cholecalciferol (vitamin D3) 50 mcg PO BID empagliflozin (Jardiance) 25 mg PO DAILY estradiol (Vivelle-Dot) 1 patch topical 2XW gabapentin 300 mg PO TID insulin glargine (Lantus Solostar U-100 Insulin) 30 units subcut BEDTIME insulin lispro 10 units subcut TID metronidazole 0.75% (MetroCream) 1 appl topical BID cpxxbluu-neaieemyq-KS 3.5-10,000-1 mg/mL-unit/mL-% 4 drps otic (ear) left Q6H rosuvastatin 5 mg PO DAILY tirzepatide (Mounjaro) mg subcut QWEEK Tobacco use date assessed: 09/17/25 Dental Screening Dental Screen Date: 09/17/25 HPI HPI Comments History of Present Illness Details Consent Patient was informed and verbally consented to the use of an ambient scribe for clinic note documentation during this visit. History of Present Illness The patient is a 45-year-old female presenting for chronic condition management, medication review, and to address new concerns of a possible ear infection and facial redness. Type 2 Diabetes Mellitus: The patient has a history of type 2 diabetes with a complex medication history. She has an intolerance to metformin, which caused diarrhea. Previous treatments included glipizide, Trulicity, and Ozempic. The patient most recently switched from Ozempic to Mounjaro. This change was necessitated by a 4-5 month lapse in medication access due to an insurance change after starting a new job, not due to intolerance of Ozempic. She has been on Mounjaro for approximately two months and also takes Jardiance. Her last endocrinology visit was in August. Otitis: The patient reports symptoms of a possible ear infection, left ear, including ear pain and pruritus. Facial Erythema: The patient has developed redness on her face, which is the only affected area. There is a concern that this may be an adverse reaction to gabapentin. History of Cancer: The patient has a history of cancer, for which she takes estradiol. Medications: - Vitamin D - Estradiol - Gabapentin - Insulin, 30 units at night - Insulin Lispro, 10 units before every meal - Rosuvastatin - Mounjaro (for ~2 months) - Jardiance Social History: - Employment: The patient recently started working. - Health Insurance: The patient previously had [employer] but experienced a change in coverage, leading to a gap in receiving her medications for 4-5 months. Review of Systems - Otologic: Reports ear pain and pruritus. - Integumentary: Reports redness on the face. - Musculoskeletal: Reports pain in the left hip. 10-point ROS reviewed and negative except as noted in HPI Past Medical History - History of cancer - Metformin intolerance manifesting as diarrhea Health Maintenance Physical Exam General: Well-appearing, in no acute distress. Vital signs: Within normal limits. HEENT: Normocephalic, atraumatic. PERRLA, EOMI. Conjunctiva clear, sclera anicteric. Oropharynx clear, mucous membranes moist. TM intact right, left not visualized canal is erythematous and painful on tragus tug Neck: Supple, no lymphadenopathy, no thyromegaly, no JVD or carotid bruits. Cardiovascular: RRR, normal S1/S2, no murmurs, rubs, or gallops. Peripheral pulses 2+ and symmetric. No edema. Respiratory: Lungs clear to auscultation bilaterally, no wheezes, rales, or rhonchi. Normal effort. Abdomen: Soft, non-tender, non-distended. Normoactive bowel sounds. No hepatosplenomegaly, no masses. MSK: Full range of motion, no joint swelling or deformity. Normal gait. Skin: Warm, dry, intact. Redness noted on the face. No rashes, lesions, or pallor. Neuro: Alert and oriented x3. Cranial nerves II-XII intact. Strength 5/5 throughout. Sensation intact. Reflexes 2+ symmetric. Normal coordination and gait. Psych: Appropriate mood and affect. Normal judgment and insight. Plan 1. Otitis Externa - A prescription otic abx medication will be sent to the pharmacy for the patient's ear symptoms, to be applied twice daily. 2. Type 2 Diabetes Mellitus - The patient will continue her current complex regimen, including Mounjaro, Jardiance, and insulins. - A follow-up visit will be scheduled to review lab results and assess the glycemic response to the Mounjaro therapy initiated two months ago. 3. Facial Erythema - Reviewed potential serious adverse reactions of gabapentin, including dermatologic reactions, though this is noted to be an unfamiliar side effect. - The plan is to treat as rosacea with metronidazole gel Discussion Notes I reviewed the patient's current medications, confirming her switch from Ozempic to Mounjaro approximately two months ago, along with her use of Jardiance, insulins, and other chronic medications. We discussed that the change in therapy was due to a lapse in insurance coverage for several months and not due to medication intolerance. Regarding her new complaint of facial redness, I considered that this could be a side effect of gabapentin and looked up its potential adverse effects, though I noted it was an uncommon presentation. For her complaint of ear pain and itching, I will prescribe a topical medication to be used twice daily. We will arrange a follow-up appointment to discuss lab results and evaluate the effectiveness of her new diabetes regimen. Patient Instructions - Use the prescribed ear medication twice a day for your ear pain and itching. - Continue taking all your current medications as prescribed, including those for diabetes and cholesterol. - Schedule a follow-up appointment to go over your lab results. Medical Decision Making The patient is a 45-year-old female with a complex medical history, primarily for management of type 2 diabetes. Her glycemic control regimen has undergone multiple recent changes, including a switch from Ozempic to Mounjaro two months ago, which was driven by a lapse in medication access due to insurance changes rather than clinical failure or side effects. Given this recent significant change, the plan is to continue the current regimen and schedule a follow-up to review lab results to assess efficacy. The patient presented with two new issues: facial redness and symptoms of an ear infection. The facial erythema is being investigated as a possible adverse drug reaction to gabapentin, although this is uncommon; for now, monitoring is appropriate. The ear symptoms of pain and pruritus are consistent with otitis, and she will be treated empirically with a topical medication. Total time spent caring for the patient today was 20 minutes. This includes time spent before the visit reviewing the chart, time spent documenting, and time spent reviewing laboratory results, diagnostic imaging, medications, performing a medically necessary evaluation, counseling on diagnoses, care coordination. [facility] Medical History (Updated 10/03/25 @ 19:02 by Raphael Buckner MD) Morbid obesity due to excess calories Otitis externa Rosacea Type 2 diabetes mellitus with diabetic neuropathy Hyperlipidemia Elevated liver enzymes Diabetes mellitus Family History Mother High blood pressure Father Diabetes Social History (Updated 10/03/25 @ 09:17 by John Cramer CMA) Housing: Apartment Alcohol intake: never Patient Tobacco Use Status: Never used Tobacco service: No Current occupational status: employed Cognitive needs: No Hearing needs: No Vision needs: No Questionnaire Thrive Questionnaire Date Thrive assessed: 09/14/25 I am a: Patient What is your living situation today?: I have a steady place to live Within the past 12 months, did the food you bought not last and you didn't have the money to get more?: Sometimes True Within the past 12 months, did you worry whether your food would run out before you got money to buy more?: Sometimes True Do you have trouble paying for medicines?: Yes Do you have trouble getting transportation to medical appointments?: No Do you have trouble paying your heating and electricity bill?: Yes Do you have trouble taking care of your child, family member or friend?: No Do you have trouble with day-to-day activities such as bathing, preparing meals, shopping, managing finances, etc.?: No Are you currently unemployed and looking for a job?: No Are you interested in more education?: Yes Please select the resources that you would like help with: Paying for medicine Currently or been in a relationship where the following occur: No concerns reported THRIVE Score: 3 Physical exam (Primary Care) Vital Signs: Last Vital Signs Temp 97.8 F 10/03/25 09:14 Pulse 103 H 10/03/25 09:14 Resp 22 H 10/03/25 09:14 BP 156/73 H 10/03/25 09:14 Pulse Ox 96 10/03/25 09:14 Oxygen Delivery Method Room Air 10/03/25 09:14 BMI result Body Mass Index 62.9 Tobacco/Smoking Status: Tobacco use Status Tobacco use date assessed 09/17/25 10/03/25 09:13 Patient Tobacco Use Status Never used Tobacco 10/03/25 09:17 Thrive Assessment: Date of Thrive Assessment Date Thrive assessed 09/14/25 10/03/25 09:13 Currently or been in a relationship where the following occur: No concerns reported Coding Level of Care Code Est Pt Level 4 (47885) Diagnoses Type 2 diabetes mellitus with diabetic neuropathy E11.40 Otitis externa H60.90 Rosacea L71.9 Morbid obesity due to excess calories E66.01 Assessment & Plan Assessment & Plan (1) Type 2 diabetes mellitus with diabetic neuropathy: Code(s): E11.40 - Type 2 diabetes mellitus with diabetic neuropathy, unspecified Category: Medical (2) Otitis externa: Code(s): H60.90 - Unspecified otitis externa, unspecified ear Category: Medical (3) Rosacea: Code(s): L71.9 - Rosacea, unspecified Category: Medical (4) Morbid obesity due to excess calories: Code(s): E66.01 - Morbid (severe) obesity due to excess calories Category: Medical Plan Orders: Orders Comprehensive Met. Panel Today Z13.9 - Encounter for screening, unspecified Medications: New metronidazole 0.75% (MetroCream) 1 appl topical BID 45 grams 0RF L71.9 - Rosacea, unspecified eswljobm-gmufxbtqs-HT 3.5-10,000-1 mg/mL-unit/mL-% 4 drps otic (ear) left Q6H 10 mL 0RF H60.90 - Unspecified otitis externa, unspecified ear
[2025-10-03 09:14] VITALS: BP 156/73; PULSE 103; RESP 22; TEMP 36.6; O2SAT 96; BMI 62.9
--- OUTSIDE RECORDS SUMMARY | 2025-10-03 09:54 | XMS_ITS | Clinical Summary ---
Author Organization [employer] Address [address] [place] [address] 7[address] [place] [address] Care Team Providers Care Willow Machine Tender Name Role Phone Unavailable Primary Care Provider Unavailabl e Allergies Active Allergy Reactions Criticality Noted Date Comments Cat Dander 08/31/2023 Medications glucose blood (FREESTYLE LITE) test strip Check BS subcutaneous bid 100 each 04/15/20 23 Active Alcohol Swabs 70 % pads Use tid as needed to check sugars 100 each 03/22/20 24 Active cholecalciferol VITAMIN D (Vitamin D-3) 50 MCG (1999) capsule TAKE ONE CAPSULE BY MOUTH TWICE DAILY 180 capsule 3 04/20/20 24 Active Blood Glucose Monitoring Suppl (Blood Glucose Monitor System) w/Device kitIndications:Typ e 2 diabetes mellitus without complication, without long-term current use of insulin ([facility]) Use to check BS 4 times a day or as needed 1 kit 07/28/20 24 Active Continuous Glucose Sensor (FreeStyle Pat 3 Sensor) [facility] USE TO check BLOOD SUGAR AND CHANGE EVERY 14 DAYS 10/24/20 24 Active insulin lispro (HumaLOG KWIKPEN) 100 UNIT/ML injection Inject 10 Units under the skin with breakfast, with lunch, and with evening meal. Active Vivelle-Dot 0.025 MG/24HR APPLY ONE PATCH TOPICALLY EVERY WEDNESDAY AND Wednesday12/05/19 25 Active Lantus SoloStar 100 UNIT/ML pen INJECT 30 UNITS SUBCUTANEOUSLY AT BEDTIME 12/05/19 25 Active Ozempic, 2 MG/DOSE, 8 MG/3ML solution pen-injector INJECT TWO MG SUBCUTANEOUSLY ONCE PER WEEK 12/05/19 25 Active Jardiance 25 MG TAKE ONE TABLET BY MOUTH EVERY MORNING 30 tablet 5 03/06/20 25 Active TRUEplus Lancets 33G misc TEST BLOOD SUGAR TWICE DAILY 60 each 04/11/20 25 Active pen needle 32G x 4 mm misc Inject under the skin 4 times daily. Use as instructed 100 each 04/11/20 25 Active gabapentin (Neurontin) 300 MG capsuleIndications :Diabetic polyneuropathy associated with type 2 diabetes mellitus (HCC) Take 1 capsule (300 mg) by mouth 3 times daily. 90 capsule 3 09/03/20 25 026 Active Active Problems Problem Noted Date Diagnosed Date Morbid obesity ([facility]) 02/16/2023 Adenocarcinoma of uterus ([facility]) 12/29/2018 Diabetes mellitus 04/01/2018 Assessment & Plan (12/26/2024 4:06 PM EST): Continue meds management as per endocrinology.Ozempic dose just increased last week per patient. Vitamin D deficiency 11/25/2017 Encounters Date Type Department Care Team Description 09/03/2025 Telephone [facility] MEDICINE [address] [place] [address] Tess Ruvalcaba MD Med Refill 07/05/2025 2:00 PM EDT Office Visit [facility] CHC ADULT DENTAL [address] [place], [place] [phone] Chrissy Perez DDS from Last 3 Months [...] 2:15 PM EST Office Visit [facility] ADULT DENTAL [address] [place] [address] Keith Barnes Health Maintenance Due Date Last [...] 10/16/2020, 02/12/2020 Depression Screening 09/09/2024 09/09/2023, 09/09/20 23 Lipid Panel 03/13/2025 03/13/2024, 12/23, 10/16/2020 COVID-19 Vaccine ( season) 2025 12/12/2021, 01/17/2021, 12/15/2020 Influenza Vaccine (#1) 2025 , 09/09/2023, 09/03/2021, Additional history exists Dental Oral Exam 12/16/2025 06/14/2025, 08/2023, 02/16/2018 Dental Prophylaxis 12/16/2025 06/14/2025, 0 08/03/2024, 08/31/2023, Additional history exists Diabetes: Hemoglobin A1C 12/18/2025 025, 12/05/2024, 07/28/2024, Additional history exists Alcohol/Substance Use Screening 12/26/2025 [...] Date/Time Associated Diagnosis Comments HEMOGLOBIN A1C Routine 09/17/2025 10:35 AM EDT Type 2 diabetes mellitus with hyperglycemia, with long-term current use of insulin (HCC) CASE PRESENTATION, DETAILED AND EXTENSIVE TREATMENT PLANNING Routine 07/05/2025 2:00 PM EDT 2 O RESIN-BASED COMPOSITE - 1 SURF, POSTERIOR Routine 07/05/2025 2:00 PM EDT 3 O COMPOSITE FILLING Routine 07/05/2025 12:00 AM EDT PROPHYLAXIS - ADULT Routine 06/14/2025 1 :00 PM EDT Dental caries BITEWINGS - 4 RADIOGRAPHIC IMAGES Routine 06/14/2025 1:00 PM EDT Dental caries PERIODIC ORAL EVALUATION - ESTABLISHED PATIENT Routine 06/14/2025 1:00 PM EDT Dental caries HM DIABETES EYE EXAM Routine 09/22/2024 1:20 PM EDT LIPID PANEL, STANDARD Routine 03/13/2024 10:20 AM EDT INTRAORAL - COMPLETE SERIES OF RADIOGRAPHIC IMAGES Routine 08/31/2023 3:00 PM EDT ALBUMIN, RANDOM URINE W/CREATININE Routine 01/01/2022 10:22 AM EST [facility] HISTORICAL HEPATITIS C ANTIBODY Routine 02/12/2020 10:28 AM EDT [facility] HISTORICAL HIV AB/AG Routine 02/12/2020 10:28 AM EDT from Last 3 Months or Most Recently Relevant to Health Maintenance Results * (ABNORMAL) Hemoglobin A1c (09/17/2025 10:35 AM EDT) Hemoglobin A1c 9.6(H) <6.0 % [facility] Comment:Hemoglobin A1C Refer ence Range Adults: 4.8 - 6.0 % Non diabetic: < 6.0 % Goal: < 7.0 %Additional Action Suggested: > 8.0 %Note: Hemoglobin A1c results are invalid for patients with abnormal amounts of HbF. Blood transfusions may impact the HbA1c concentration in the patient sample. Estimated Average Glucose 229 mg/dL [facility] Comment:eAG = Estimated ave rage glucose which is %A1C expressed asaverage glucose, using the formula of the G3N-[id number] Glucose study (ADAG), Diabetes Care, Vol.31,#8,Jun. 2007 Blood Venous blood specimen / Unknown 09/17/2025 10:35 AM EDT 09/17/2025 1:14 PM EDT us Ana Barnes MD LAB BLOOD ORDERABLES Final Result [facility] [address] [place] [phone] * Diabetes Eye Exam (09/22/2024 1:20 PM EDT) us Historical Provider HEALTH MAINTENANCE Final Result * Lipid Panel, Standard (03/13/2024 10:20 AM EDT) Triglycerides 142 <150 mg/dL [facility] Comment:Desirable Triglyceri de: less than 150 mg/dLBorderline High Triglyceride 150-199 mg/dLHigh Triglyceride: 200-499 mg/dLVery High Triglyceride: greater than or equal to 5OO mg/dL Cholesterol 174 <200 mg/dL [facility] Comment:Desirable Cholestero l: less than 200 mg/dLBorderline High Cholesterol: 200-239 mg/dLHigh Cholesterol: greater than 239 mg/dL LDL Cholesterol Calculated 97 <100 mg/dL [facility] Comment:Desirable LDL: less than 100 mg/dLNear Optimal/Above Optimal LDL: 110- 129 mg/dLBorderline High LDL: 130-159 mg/dLHigh LDL: 160-189 mg/dLVery High LDL: greater than or equal to 190 mg/dL HDL Cholesterol 49 >40 mg/dL [facility] Comment:Desirable HDL: great er than 40 mg/dL Note: This HDL assay may give artificially low results in patients with liver disease. 03/13/2024 10:2 0 AM EDT 03/13/2024 2:45 PM EDT Tess Ruvalcaba MD LAB BLOOD ORDERABLES Final Re sult [facility] [address] [place] [phone] * ALBUMIN, RANDOM URINE W/CREATININE (01/01/2022 10:22 AM EST) Microalbumin Urine 0.7 See Note: mg/dL [facility] Comment: Reference Range: Reference Range Not established Microalb/Creat Ratio 9 <30 mcg/mg creat [facility] Comment: The ADA defines [...] Creatinine, Urine 80 20 - 275 mg/dL [facility] 01/01/2022 10:2 2 AM EST us Tess Ruvalcaba MD LAB URINE ORDERABLES Final Re sult Performing Organization Address [facility] de Phone Number [facility] [address] * HEPATITIS C ANTIBODY (02/12/2020 10:28 AM EDT) HEPATITIS C ANTIBODY NONREACTIVE NONREACTIVE [facility] Comment: Antibodies to HCV not detected; does not exclude early acute HCV infection. 02/12/2020 10:2 8 AM EDT us Tess Ruvalcaba MD HISTORICAL/NON ORDERABLE LABS Final Result Performing Organization Address [facility] Phone Number [facility] [address] * HIV AB/AG (02/12/2020 10:28 AM [...] of detection of this assay. The [employer] HIV Ag/Ab Combo assay result and supplemental assay results should be interpreted in conjunction with the patient's clinical presentation, history and other laboratory results. If the results are inconsistent with clinical evidence, additional testing is suggested to confirm the result. 02/12/2020 10:2 8 AM EDT us Tess Ruvalcaba MD HISTORICAL/NON ORDERABLE LABS Final Result Performing Organization Address [facility] de Phone Number [facility] [address] from Last 3 Months or Most Recently Relevant to Health Maintenance Insurance [place] [id number] [facility] - HSN PARTIAL ([place]ICA[place]) [place] [id number] [place] [id number]
--- OUTSIDE RECORDS SUMMARY | 2025-10-03 09:54 | XMS_ITS | Encounter Summary ---
Author Organization [employer] Address [address] [place] [address] Care Team Providers Care Engraver Steel Plate Name Role Phone Tess Ruvalcaba MD Primary Care Provider [phone] Reason for Visit * Reason Onset Date Comments PT1 09/02/2023 Encounter Details Date Type Department Care Team ([facility] st Contact Info) Description 09/02/2023 Telephone [facility] CHC MED & PEDS [address] [place], [place] [phone] Tess Ruvalcaba MD [address] [place] [address] PT1 Social History Tobacco Use Types Packs/Day [...] 09/02/2023 11:55 AM EDT Tc from [facility] (customer care specialist) requesting PT1 transportation for pt. Start Date: 09/09/2023 Time: 2:00 PM Visits: n/a Address: [address] [place] [id number] Facility: [facility] Wheel Chair: n/a Sock Examiner Needed: n/a documented in this encounter Plan of Treatment Upcoming Encounters Date Type Department Care Team ([facility] st Contact Info) Description 12/17/2025 2:15 PM EST Office Visit [facility] CHC ADULT DENTAL [address] [place] [address] Keith Barnes documented as of this encounter Visit Diagnoses Not on filedocumented in this encounter Additional Health Concerns Assessment Noted Time PHQ-9 Depression Total Score: 0 04/15/20 23 2:08 PM EDT documented as of this encounter Care Teams Engraver Steel Plate Relationship Specialty Start Date End Date Tess Ruvalcaba MD [address] [place] [phone] PCP - General Family Medicine 11/24/17 09/17/25 documented as of this encounter
--- OUTSIDE RECORDS SUMMARY | 2025-10-03 09:54 | XMS_ITS | Clinical Summary ---
Author Organization [address] [place] [address] Address [address] [place] [address] Phone Care Team Providers Care Barber Shop Manager Name Role Phone Tess Ruvalcaba MD Primary Care Provider Allergies No known active allergies Medications cholecalciferol [...] (BMI) of 60.0 to 69.9 in adult ([facility] V24, [facility] V28) 09/05/2024 Endometrial cancer ([facility] V24, [facility] V28) Anemia 11/01/2020 Diabetes mellitus ([facility] V24, [facility] V28) 09/2018 Medical History Medical History Date [...] % Blood Venous blood specimen / Unknown [facility] Provider LAB BLOOD ORDERABLES Julissa l Result * Annual BMP Blood Test (03/13/2024) Annual BMP Blood Test Abstracted [facility] Provider HEALTH MAINTENANCE Final Result * (ABNORMAL) [...] Relevant to Health Maintenance Insurance [place] Advance Directives Documents on File Type Date Recorded Patient Sand Cleaning Machine Operator Expl anation Health Care Decision (hx) 04/11/2021 AD YUEN DIRECTIVE Health Care Decision (hx) 04/11/2021 AD YUEN DIRECTIVE Health Care Decision (hx) 04/11/2021 AD YUEN DIRECTIVE Health Care Decision (hx) 04/11/2021 AD YUEN DIRECTIVE Health Care Decision (hx) 04/11/2021 AD YUEN DIRECTIVE Health Care Decision (hx) 04/11/2021 AD YUEN DIRECTIVE Care Teams Barber Shop Manager Relationship Specialty Start Date End Date Tess Ruvalcaba MD [address] [place] [phone] PCP - General 02/23/18
--- OUTSIDE RECORDS SUMMARY | 2025-10-03 09:54 | XMS_ITS | Encounter Summary ---
Author Organization [employer] Address [address] [place] [address] Care Team Providers Care Framing Machine Tender Name Role Phone Tess Ruvalcaba MD Primary Care Provider [phone] Encounter Details Date Type Department Care Team (Late Contact Info) Description 12/15/2022 Telephone [facility] MED & PEDS [address] [place] [address] Tess Ruvalcaba MD [address] [place] [address] Social History Tobacco Use Types Packs/Day Years [...] Description 12/17/2025 2:15 PM EST Office Visit [facility] ADULT DENTAL [address] [place] [address] Keith Barnes documented as of this encounter Visit Diagnoses Not on filedocumented in this encounter Care Teams Framing Machine Tender Relationship Specialty Start Date End Date Tess Ruvalcaba MD [address] [place] [address] PCP - General Family Medicine 11/24/17 09/17/25 documented as of this encounter
--- OUTSIDE RECORDS SUMMARY | 2025-10-03 09:54 | XMS_ITS | Encounter Summary ---
Author Organization [employer] Address [address] [place] [address] Care Team Providers Care Metal Burrer Name Role Phone Tess Ruvalcaba MD Primary Care Provider [phone] Reason for Visit * Reason Comments Med Refill Encounter Details Date Type Department Care Team ([facility] st Contact Info) Description 02/28/[address] [facility] CHC MED & PEDS [address] [place], [place] [phone] Tess Ruvalcaba MD [address] [place] [address] Social History Tobacco Use Types Packs/Day Years [...] Description 12/17/2025 2:15 PM EST Office Visit [facility] CHC ADULT DENTAL [address] [place] [address] Keith Barnes documented as of this encounter Visit Diagnoses Not on filedocumented in this encounter Additional Health Concerns Assessment Noted Time PHQ-9 Depression Total Score: 4 09/09/20 23 2:36 PM EDT documented as of this encounter Care Teams Metal Burrer Relationship Specialty Start Date End Date Tess Ruvalcaba MD [address] [place] [address] PCP - General Family Medicine 11/24/17 09/17/25 documented as of this encounter
--- OUTSIDE RECORDS SUMMARY | 2025-10-03 09:54 | XMS_ITS | Encounter Summary ---
Author Organization [employer] Address [address] [facility] [address]t [place] [address] Care Team Providers Care Dry End Tester Name Role Phone Tess Ruvalcaba MD Primary Care Provider [phone] Encounter Details Date Type Department Care Team ([facility] st Contact Info) Description 09/27/2024 Orders Only [facility] CHC MED & PEDS [address] [place], [place] [phone] ProviderJames MD Social History Tobacco Use Types [...] Description 12/17/2025 2:15 PM EST Office Visit [facility] ADULT DENTAL [address] [place] [address] Keith Barnes documented as of this encounter [...] documented as of this encounter Care Teams Dry End Tester Relationship Specialty Start Date End Date Tess Ruvalcaba MD [address] [place] [address] PCP - General Family Medicine 11/24/17 09/17/25 documented as of this encounter
--- OUTSIDE RECORDS SUMMARY | 2025-10-03 09:54 | XMS_ITS | Encounter Summary ---
Author Organization [employer] Address [address] [place] [address] Care Team Providers Care Stock Patch Sawyer Name Role Phone Tess Ruvalcaba MD Primary Care Provider [phone] Encounter Details Date Type Department Care Team (Latest Contact Info) Description 03/15/2019 Abstract [facility] CONVERSIONS Dental, Provider, DDS Social History Tobacco [...] Description 12/17/2025 2:15 PM EST Office Visit [facility] CHC ADULT DENTAL [address] [place] [address] Keith Barnes documented as of this encounter Visit Diagnoses Not on filedocumented in this encounter Care Teams Stock Patch Sawyer Relationship Specialty Start Date End Date Tess Ruvalcaba MD [address] [place] [address] PCP - General Family Medicine 11/24/17 09/17/25 documented as of this encounter
--- OUTSIDE RECORDS SUMMARY | 2025-10-03 09:55 | XMS_ITS | Encounter Summary ---
Author Organization [employer] Address [address] [place] [address] 7 [place] [address] Care Team Providers Care Speeder Frame Tender Name Role Phone Tess Ruvalcaba MD Primary Care Provider [phone] Encounter Details Date Type Department Care Team ([facility] st Contact Info) Description 12/28/2024 Orders Only [facility] CHC MED & PEDS [address] [place], [place] [phone] Ana Barnes MD [address] [place] [address] Type 2 diabetes mellitus with hyperglycemia, with long-term current use of insulin ([facility]) (Primary Dx) Social History Tobacco Use Types [...] 2:15 PM EST Office Visit [facility] ADULT DENTAL [address] [place] [address] Keith Barnes documented as of this encounter Procedures Procedure Name Priority Date/Time Associated Diagnosis Comments HEMOGLOBIN A1C Routine 09/17/2025 10:35 AM EDT Type 2 diabetes mellitus with hyperglycemia, with long-term current use of insulin (HCC) documented in this encounter Results * (ABNORMAL) Hemoglobin A1c (09/17/2025 10:35 AM EDT) Hemoglobin A1c 9.6(H) <6.0 % [facility] Comment:Hemoglobin A1C Refer ence Range Adults: 4.8 - 6.0 % Non diabetic: < 6.0 % Goal: < 7.0 %Additional Action Suggested: > 8.0 %Note: Hemoglobin A1c results are invalid for patients with abnormal amounts of HbF. Blood transfusions may impact the HbA1c concentration in the patient sample. Estimated Average Glucose 229 mg/dL [facility] Comment:eAG = Estimated ave rage glucose which is %A1C expressed asaverage glucose, using the formula of the [id number]-IoqngifAeuwmtw Glucose study (ADAG), Diabetes Care, Vol.31,#8,Jun. 2007 Blood Venous blood specimen / Unknown 09/17/2025 10:35 AM EDT 09/17/2025 1:14 PM EDT us Ana Barnes MD LAB BLOOD ORDERABLES Final Result [facility] [address] [place] [address] [phone] documented in this encounter Visit Diagnoses Diagnosis Type 2 diabetes mellitus with hyperglycemia, with long-term current use of insulin (HCC)- Primary documented in this encounter Additional Health Concerns Assessment Noted Time PHQ-9 Depression Total Score: 4 09/09/20 23 2:36 PM EDT documented as of this encounter Care Teams Speeder Frame Tender Relationship Specialty Start Date End Date Tess Ruvalcaba MD [address] [place] [address] PCP - General Family Medicine 11/24/17 09/17/25 documented as of this encounter
--- OUTSIDE RECORDS SUMMARY | 2025-10-03 09:55 | XMS_ITS | Encounter Summary ---
Author Organization [employer] Address [address] [address] Care Team Providers Care Ten Pin Bowling Centre Manager Name Role Phone Tess Ruvalcaba MD Primary Care Provider [phone] Reason for Visit * Reason Onset Date Comments Nurse Triage 02/08/2024 Encounter Details Date Type Department Care Team ([facility] st Contact Info) Description 02/08/2024 Telephone [facility] MED[facility] [address] [place] [address] Tess Ruvalcaba MD [address] [place] [address] Nurse Triage Social History Tobacco Use Types [...] 02/08/2024 9:53 AM EDT Triage call with [place] Examiner [place] [id number] Raul. Pt reports symptoms of cellulitis in left leg. Pt reports a history of this problem. Pt reports increased edema, swelling, redness and warmth ofthis left leg. Pt also has headache. Pt is advised to come to [facility] open till 8pm this evening. No available apts in [facility] today. Pt agrees with this disposition and will come to [facility]. Pt already aware of home care. Insurance [...] Description 12/17/2025 2:15 PM EST Office Visit [facility] ADULT DENTAL [address] [place] [address] Keith Barnes documented as of this encounter Visit Diagnoses Not on filedocumented in this encounter Additional Health Concerns Assessment Noted Time PHQ-9 Depression Total Score: 4 09/09/20 23 2:36 PM EDT documented as of this encounter Care Teams Ten Pin [place] Manager Relationship Specialty Start Date End Date Tess Ruvalcaba MD [address] [place] [address] PCP - General Family Medicine 11/24/17 09/17/25 documented as of this encounter
--- OUTSIDE RECORDS SUMMARY | 2025-10-03 09:55 | XMS_ITS | Encounter Summary ---
Author Organization [employer] Address [address] [address] Care Team Providers Care Ship Erector Name Role Phone Tess Ruvalcaba MD Primary Care Provider [phone] Reason for Visit * Reason Onset Date Comments Medication Question 04/27/2024 Encounter Details Date Type Department Care Team ([facility] st Contact Info) Description 04/27/2024 Telephone [facility] MEDICINE [address] [place] [address] Tess Ruvalcaba MD [address] [place], [place] [phone] Medication Question Social History Tobacco Use Types [...] states was advised by pharmacy to call [facility] in regards to the medication dulaglutide (Trulicity) 4.5 MG/0.5ML solution pen-injector states only have the 3mg in stock and has been with out this medication for a month documented in this encounter Plan of Treatment Upcoming Encounters Date Type Department Care Team (Late st Contact Info) Description 12/17/2025 2:15 PM EST Office Visit [facility] ADULT DENTAL [address] [place] [address] Keith Barnes documented as of this encounter Visit Diagnoses Not on filedocumented in this encounter Additional Health Concerns Assessment Noted Time PHQ-9 Depression Total Score: 4 09/09/20 23 2:36 PM EDT documented as of this encounter Care Teams Ship Erector Relationship Specialty Start Date End Date Tess Ruvalcaba MD [address] [place] [address] PCP - General Family Medicine 11/24/17 09/17/25 documented as of this encounter
== END 2025-10-03 09:34 | disposition home or self-care (01) ==
LOC: HO.HMCFMS 09:08
PROVIDERS: Visit Provider Student in an Organized Health Care Education/Training Program
DX: E11.40 Type 2 diabetes mellitus with diabetic neuropathy, unspecified (principal); H60.90 Unspecified otitis externa, unspecified ear; L71.9 Rosacea, unspecified; E66.01 Morbid (severe) obesity due to excess calories

== ENCOUNTER 2025-10-03 09:07 | Outpatient (REF) | payer OTHER, SELFPAY ==
[2025-10-03 13:58] LABS: Alanine Aminotransferase 65 U/L (0-31); Albumin Level 4.0 g/dL (3.5-5.0); Alkaline Phosphatase 86 U/L (39-117); Anion Gap 11 (12-20); Aspartate Amino Transferase 43 U/L (5-31); Blood Urea Nitrogen 19 mg/dL (9-16); Calcium 9.2 mg/dL (8.4-10.2); Carbon Dioxide 28 mmol/L (22-29); Chloride 105 mmol/L (96-108); Estimated Glomerular Filt Rate > 60; Potassium 4.6 mmol/L (3.3-5.1); Sodium 139 mmol/L (135-145); Total Protein 7.7 g/dL (6.5-8.0)
== END 2025-10-03 09:08 | disposition home or self-care (01) ==
LOC: HO.HKASLDS 09:07
PROVIDERS: PCP Student in an Organized Health Care Education/Training Program; Visit Provider Student in an Organized Health Care Education/Training Program
DX: Z13.9 Encounter for screening, unspecified (principal); E11.40 Type 2 diabetes mellitus with diabetic neuropathy, unspecified; H60.90 Unspecified otitis externa, unspecified ear; L71.9 Rosacea, unspecified; E66.01 Morbid (severe) obesity due to excess calories; Z68.44 Body mass index [BMI] 60.0-69.9, adult; Z79.4 Long term (current) use of insulin; Z79.890 Hormone replacement therapy; Z79.899 Other long term (current) drug therapy
CPT/HCPCS: 36415; 80053

== ENCOUNTER 2025-10-17 10:19 | Outpatient (AMB) | payer OTHER, SELFPAY ==
--- NOTE | 2025-10-17 10:22 | A.OFFPC_ITS ---
Vital Signs 10/17/25 10:28 Height 5 ft 2.2 in Weight 346 lb 8 oz BMI 63.0 BP 135/91 H Blood Pressure Location Rt brachial Position Sitting Respiration 20 Pulse 98 Pulse Source Monitor Temp 98 F Temp Source Oral Pulse Oximetry (%) 95 Oxygen Delivery Method Room Air Intake Visit Reasons: 2 wk - lab review Intake Note: lab review Spreader Operator Required: No Accompanied by: Self / Same As Patient Allergies No Known Allergies Allergy (Verified 10/17/25 10:26) Tobacco use date assessed: 09/17/25 Dental Screening Dental Screen Date: 09/17/25 HPI HPI Comments History of Present Illness Details Consent Patient was informed and verbally consented to the use of an ambient scribe for clinic note documentation during this visit. History of Present Illness The patient is a 45 year old individual presenting for a follow-up on rosacea and ear symptoms. Rosacea: The patient reports that the rosacea is doing well and has improved with a prescribed cream, noting less redness and resolution of pimples. The patient continues to have residual dark spots but is still using the cream. Chronic Ear Disorder: The patient complains of persistent itchiness, some pain, and a constant ringing noise in the ears, which have not resolved despite using neomycin/polymyxin drops. The patient has a lifelong history of ear infections in both ears. The patient denies any history of having tubes placed in the ears and last saw an ENT specialist approximately 25-30 years ago. Surgical History: - No history of tympanostomy tube placem ent Medications: - Unspecified topical cream for rosacea - Neomycin/polymyxin ear drops (recently used) - Gabapentin, as needed Review of Systems - Ears: Reports persistent bilateral pru ritus, otalgia, and constant tinnitus despite treatment. - Skin: Reports improvement of rosacea w ith reduction in erythema and pimples using a topical cream, with some residual dark spots. 10-point ROS reviewed and negative excep t as noted in HPI Past Medical History - Rosacea - Lifelong history of bilateral ear infe ctions Health Maintenance Physical Exam General: Well-appearing, in no acute distress. Vital signs: Within normal limits. HEENT: Normocephalic, atraumatic. PERRLA, EOMI. Conjunctiva clear, sclera anicteric. Oropharynx clear, mucous membranes moist. TMs intact bilaterally, but patient reports itchiness, pain, and ringing in both ears. History of ear in fections throughout life. Neck: Supple, no lymphadenopathy, no thyromegaly, no JVD or carotid bruits. Cardiovascular: RRR, normal S1/S2, no murmurs, rubs, or gallops. Peripheral pulses 2+ and symmetric. No edema. Respiratory: Lungs clear to auscultation bilaterally, no wheezes, rales, or rhonchi. Normal effort. Abdomen: Soft, non-tender, non-distended. Normoactive bowel sounds. No hepatosplenomegaly, no masses. MSK: Full range of motion, no joint swelling or deformity. Normal gait. Skin: Warm, dry, intact. No rashes, lesions, or pallor. Improvement in rosacea noted with ongoing treatment, though dark spots remain. Neuro: Alert and oriented x3. Cranial nerves II-XII intact. Strength 5/5 throughout. Sensation intact. Reflexes 2+ symmetric. Normal coordination and gait. Psych: Appropriate mood and affect. Normal judgment and insight. Plan 1. Rosacea - The patient's rosacea is responding we ll to the current topical cream. - The plan is to continue with the curre nt cream, with the expectation that residual dark spots will fade over time. 2. Chronic Ear Disorder - The patient's symptoms of ear pruritus , otalgia, and tinnitus have not responded to a trial of neomycin/polymyxin drops. - A referral to an licensing registration examiner (ENT ) is recommended for further evaluation due to the chronic nature of the symptoms and treatment failure. - A printed list of ENT specialists will be provided to the patient to schedule an appointment. 3. Medication Management - The patient will continue to use gabap entin on an as-needed basis. 4-elevated liver enzymes Discussed lifestyle modifications and she has a liver ultrasound pending at this time Discussion Notes I reviewed the patient's two main concerns: rosacea and ear symptoms. I noted that the rosacea is improving significantly with the prescribed cream and advised the patient that the remaining dark spots will take time to resolve. Regarding the ear symptoms, which include persistent itching, pain, and tinnitus refractory to neomycin/polymyxin drops, I recommended a specialist evaluation. I informed the patient that I will provide a printed list of otolaryngologists to contact for an appointment to investigate the chronic, lifelong history of ear issues further. Patient Instructions - Continue using the cream for your john cea. - The dark spots on your skin will take some time to go away. - You will need to see an Ear, Nose, and Throat (ENT) specialist for your persistent ear itching, pain, and ringing. - We will give you a printed list of ENT doctors for you to call and make an appointment. - Continue taking Gabapentin only when y ou need it. - schedule ultrasound of abdomen Medical Decision Making The patient is a 45-year-old individual presenting for a follow-up on two active issues: rosacea and a chronic ear disorder. The rosacea shows significant improvement with the current topical cream, and the plan is to continue this treatment. The ear symptoms, including pruritus, otalgia, and tinnitus, are more concerning as they have not responded to a course of neomycin/polymyxin drops. Given the patient's lifelong history of ear infections and the failure of first- line therapy, a referral to Otolaryngology is medically necessary for further diagnostic workup and management to rule out underlying chronic otitis or other pathology. Total Time Statement 20 min Total time spent caring for the patient today includes pre-visit chart review, documentation, review of laboratory and diagnostic imaging results, medication reconciliation, medically necessary evaluation, counseling on diagnoses, care coordination, ordering appropriate tests and medications, review of tests performed by other providers, reporting test results to the patient, and communication with other healthcare providers. [facility] Medical History (Updated 10/17/25 @ 10:46 by Raphael Buckner MD) Chronic ear infection Morbid obesity due to excess calories Otitis externa Rosacea Type 2 diabetes mellitus with diabetic neuropathy Hyperlipidemia Elevated liver enzymes Diabetes mellitus Family History Mother High blood pressure Father Diabetes Social History (Updated 10/03/25 @ 09:17 by John Cramer CMA) Housing: Apartment Alcohol intake: never Patient Tobacco Use Status: Never used Tobacco service: No Current occupational status: employed Cognitive needs: No Hearing needs: No Vision needs: No Questionnaire Thrive Questionnaire Date Thrive assessed: 09/14/25 I am a: Patient What is your living situation today?: I have a steady place to live Within the past 12 months, did the food you bought not last and you didn't have the money to get more?: Sometimes True Within the past 12 months, did you worry whether your food would run out before you got money to buy more?: Sometimes True Do you have trouble paying for medicines?: Yes Do you have trouble getting transportation to medical appointments?: No Do you have trouble paying your heating and electricity bill?: Yes Do you have trouble taking care of your child, family member or friend?: No Do you have trouble with day-to-day activities such as bathing, preparing meals, shopping, managing finances, etc.?: No Are you currently unemployed and looking for a job?: No Are you interested in more education?: Yes Please select the resources that you would like help with: Paying for medicine Currently or been in a relationship where the following occur: No concerns reported THRIVE Score: 3 Physical exam (Primary Care) Vital Signs: Last Vital Signs Temp 98 F 10/17/25 10:28 Pulse 98 10/17/25 10:28 Resp 20 10/17/25 10:28 BP 135/91 H 10/17/25 10:28 Pulse Ox 95 10/17/25 10:28 Oxygen Delivery Method Room Air 10/17/25 10:28 BMI result Body Mass Index 63.0 Tobacco/Smoking Status: Tobacco use Status Tobacco use date assessed 09/17/25 10/17/25 10:23 Patient Tobacco Use Status Never used Tobacco 10/17/25 10:23 Thrive Assessment: Date of Thrive Assessment Date Thrive assessed 09/14/25 10/17/25 10:23 Currently or been in a relationship where the following occur: No concerns reported Coding Level of Care Code Est Pt Level 3 (66945) Diagnoses Rosacea L71.9 Chronic ear infection H66.90 Morbid obesity due to excess calories E66.01 Elevated liver enzymes R74.8 Assessment & Plan Assessment & Plan (1) Rosacea: Code(s): L71.9 - Rosacea, unspecified Category: Medical (2) Chronic ear infection: Code(s): H66.90 - Otitis media, unspecified, unspecified ear Category: Medical (3) Morbid obesity due to excess calories: Code(s): E66.01 - Morbid (severe) obesity due to excess calories Category: Medical (4) Elevated liver enzymes: Code(s): R74.8 - Abnormal levels of other serum enzymes Category: Medical Plan Orders: Referrals Ear/Nose/Throat Referral H66.90 - Otitis media, unspecified, unspecified ear
[2025-10-17 10:28] VITALS: BP 135/91; PULSE 98; RESP 20; TEMP 36.6; O2SAT 95; BMI 63.0
--- OUTSIDE RECORDS SUMMARY | 2025-10-17 12:10 | XMS_ITS | Encounter Summary ---
Author Organization [email or web address] Address [address] [place] [address] Care Team Providers Care Touch Up Worker Name Role Phone Tess Ruvalcaba MD Primary Care Provider [phone] Encounter Details Date Type Department Care Team (Latest Contact Info) Description 03/15/2019 Abstract [facility] CONVERSIONS Dental, Provider, DDS Social History [...] Description 12/17/2025 2:15 PM EST Office Visit [facility] ADULT DENTAL [address] [place] [address] Keith Barnes documented as of this encounter Visit Diagnoses Not on filedocumented in this encounter Care Teams Touch Up Worker Relationship Specialty Start Date End Date Tess Ruvalcaba MD [address] [place] [address] PCP - General Family Medicine 11/24/17 09/17/25 documented as of this encounter
--- OUTSIDE RECORDS SUMMARY | 2025-10-17 12:10 | XMS_ITS | Encounter Summary ---
Author Organization [email or web address] Address [address] [facility] [address] [place] [address] Care Team Providers Care Supervisor Network Control Operators Name Role Phone Tess Ruvalcaba MD Primary Care Provider [phone] Encounter Details Date Type Department Care Team ([facility] st Contact Info) Description 09/27/2024 Orders Only [facility] CHC MED & PEDS [address] [place], [place] [phone] ProviderJames MD Social History Tobacco Use Types [...] 12/17/2025 2:15 PM EST Office Visit [facility] ADULT DENTAL [address] [place] [address] Keith Barnes documented as of this encounter [...] documented as of this encounter Care Teams Supervisor Network Control Operators Relationship Specialty Start Date End Date Tess Ruvalcaba MD [address] [place] [address] PCP - General Family Medicine 11/24/17 09/17/25 documented as of this encounter
--- OUTSIDE RECORDS SUMMARY | 2025-10-17 12:10 | XMS_ITS | Encounter Summary ---
Author Organization [employer] Address [address] [place] [address] 7 [place] [address] Care Team Providers Care Oil Well Driller Name Role Phone Tess Ruvalcaba MD Primary Care Provider [phone] Encounter Details Date Type Department Care Team ([facility] st Contact Info) Description 12/28/2024 Orders Only [facility] CHC MED & PEDS [address] [place], [place] [phone] Ana Barnes MD [address] [place] [address] Type 2 diabetes mellitus with hyperglycemia, with long-term current use of insulin ([facility]) (Primary Dx) Social History Tobacco Use Types [...] Description 12/17/2025 2:15 PM EST Office Visit [facility] ADULT DENTAL [address] [place] [address] Keith Barnes documented as of this encounter Procedures Procedure Name Priority Date/Time Associated Diagnosis Comments HEMOGLOBIN A1C Routine 09/17/2025 10:35 AM EDT Type 2 diabetes mellitus with hyperglycemia, with long-term current use of insulin (HCC) documented in this encounter Results * (ABNORMAL) Hemoglobin A1c (09/17/2025 10:35 AM EDT) Hemoglobin A1c 9.6(H) <6.0 % [facility] Comment:Hemoglobin A1C Refer ence Range Adults: 4.8 - 6.0 % Non diabetic: < 6.0 % Goal: < 7.0 %Additional Action Suggested: > 8.0 %Note: Hemoglobin A1c results are invalid for patients with abnormal amounts of HbF. Blood transfusions may impact the HbA1c concentration in the patient sample. Estimated Average Glucose 229 mg/dL [facility] Comment:eAG = Estimated ave rage glucose which is %A1C expressed asaverage glucose, using the formula of the J0G-CpjdaulDatjczk Glucose study (ADAG), Diabetes Care, Vol.31,#8,Jun. 2007 Blood Venous blood specimen / Unknown 09/17/2025 10:35 AM EDT 09/17/2025 1:14 PM EDT us Ana Barnes MD LAB BLOOD ORDERABLES Final Result [facility] [address] [place] [address] [phone] documented in this encounter Visit Diagnoses Diagnosis Type 2 diabetes mellitus with hyperglycemia, with long-term current use of insulin (HCC)- Primary documented in this encounter Additional Health Concerns Assessment Noted Time PHQ-9 Depression Total Score: 4 09/09/20 23 2:36 PM EDT documented as of this encounter Care Teams Oil Well Driller Relationship Specialty Start Date End Date Tess Ruvalcaba MD [address] [place] [address] PCP - General Family Medicine 11/24/17 09/17/25 documented as of this encounter
--- OUTSIDE RECORDS SUMMARY | 2025-10-17 12:10 | XMS_ITS | Clinical Summary ---
Author Organization [address] [place] [address] Address [address] [place] [address] Phone Care Team Providers Care Welfare Director Name Role Phone Tess Ruvalcaba MD Primary Care Provider [phone] Allergies No known active allergies Medications cholecalciferol [...] (BMI) of 60.0 to 69.9 in adult ([facility] V24, [facility] V28) 09/05/2024 Endometrial cancer ([facility] V24, [facility] V28) Anemia 11/01/2020 Diabetes mellitus ([facility] V24, [facility] V28) 09/2018 Medical History Medical History Date [...] % Blood Venous blood specimen / Unknown [facility] Provider LAB BLOOD ORDERABLES Julissa l Result * Annual BMP Blood Test (03/13/2024) Annual BMP Blood Test Abstracted [facility] Provider HEALTH MAINTENANCE Final Result * (ABNORMAL) [...] Documents on File Type Date Recorded Patient Ballet Master/Mistress Expl anation Health Care Decision (hx) 04/11/2021 AD YUEN DIRECTIVE Health Care Decision (hx) 04/11/2021 AD YUEN DIRECTIVE Health Care Decision (hx) 04/11/2021 AD YUEN DIRECTIVE Health Care Decision (hx) 04/11/2021 AD YUEN DIRECTIVE Health Care Decision (hx) 04/11/2021 AD YUEN DIRECTIVE Health Care Decision (hx) 04/11/2021 AD YUEN DIRECTIVE Care Teams Welfare Director Relationship Specialty Start Date End Date Tess Ruvalcaba MD [address] [place] [phone] PCP - General 02/23/18
--- OUTSIDE RECORDS SUMMARY | 2025-10-17 12:10 | XMS_ITS | Encounter Summary ---
Author Organization [employer] Address [address] [place] [address] Care Team Providers Care Wood Coater Name Role Phone Tess Ruvalcaba MD Primary Care Provider [phone] Reason for Visit * Reason Comments Med Refill Encounter Details Date Type Department Care Team ([facility] st Contact Info) Description 02/28/2025 Refill [facility] CHC MED & PEDS [address] [place], [place] [phone] Tess Ruvalcaba MD [address] [place] [address] Social History Tobacco Use Types Packs/Day Years [...] Description 12/17/2025 2:15 PM EST Office Visit [facility] CHC ADULT DENTAL [address] [place] [address] Keith Barnes documented as of this encounter Visit Diagnoses Not on filedocumented in this encounter Additional Health Concerns Assessment Noted Time PHQ-9 Depression Total Score: 4 09/09/20 23 2:36 PM EDT documented as of this encounter Care Teams Wood Coater Relationship Specialty Start Date End Date Tess Ruvalcaba MD [address] [place] [address] PCP - General Family Medicine 11/24/17 09/17/25 documented as of this encounter
--- OUTSIDE RECORDS SUMMARY | 2025-10-17 12:10 | XMS_ITS | Clinical Summary ---
Author Organization [employer] Address [address] [place] [address] 7[address] [place] [address] Care Team Providers Care Ropeman Name Role Phone Unavailable Primary Care Provider [...] complication, without long-term current use of insulin ([facility]) Use to check BS 4 times a day or as needed 1 kit 07/28/20 24 Active Continuous Glucose Sensor (FreeStyle Pat 3 Sensor) [facility] USE TO check BLOOD [...] Problem Noted Date Diagnosed Date Morbid obesity ([facility]/HCC) 02/16/2023 Adenocarcinoma of uterus ([facility]) 12/29/2018 Diabetes mellitus 04/01/2018 Assessment & Plan (12/26/2024 4:06 PM EST): Continue meds management as per endocrinology.Ozempic dose just increased last week per patient. Vitamin D deficiency 11/25/2017 Encounters Date Type Department Care Team Description 09/03/2025 Telephone [facility] MEDICINE [address] [place] [phone] Tess Ruvalcaba MD Med Refill from Last 3 Months Immunizations Immunization Administration [...] 12/17/2025 2:15 PM EST Office Visit [facility] ADULT DENTAL [address] [place] [address] Keith Barnes Health Maintenance Due Date Last [...] 2021 Diabetes: Urine Protein Screening 01/01/2023 01/01/2022, 01/01/2022, 10/16/2020, Additional history exists Depression Screening 09/09/2024 09/09/2023, 09/09/20 23 Lipid Panel 03/13/2025 03/13/2024, 02/, 10/16/2020 COVID-19 Vaccine ( season) 2025 12/12/2021, 01/17/2021, 12/15/2020 Influenza Vaccine (#1) 2025 , 09/09/2023, 09/03/2021, Additional history exists Dental Oral Exam 12/16/2025 06/14/2025, 08/2023, 02/16/2018 Dental Prophylaxis 12/16/2025 06/14/2025, 0 08/03/2024, 08/31/2023, Additional history exists Diabetes: Hemoglobin A1C 12/18/2025 025, 12/05/2024, 07/28/2024, Additional history exists Alcohol/Substance Use Screening 12/26/2025 12/26/2024 SDOH Screening 01/31/2026 01/31/2025 Dental X-Ray: Bitewings 06/15/2026 06/14/20 25, 08/31/2023, 02/16/2018 Tobacco Screening 07/05/2026 07/05/2025 Dental [...] with long-term current use of insulin (HCC) PROPHYLAXIS - ADULT Routine 06/14/2025 1 :00 [...] AM EDT) Hemoglobin A1c 9.6(H) <6.0 % [facility] Comment:Hemoglobin A1C Refer ence Range Adults: 4.8 - 6.0 % Non diabetic: < 6.0 % Goal: < 7.0 %Additional Action Suggested: > 8.0 %Note: Hemoglobin A1c results are invalid for patients with abnormal amounts of HbF. Blood transfusions may impact the HbA1c concentration in the patient sample. Estimated Average Glucose 229 mg/dL [facility] Comment:eAG = Estimated ave rage glucose which is %A1C expressed asaverage glucose, using the formula of the T5R-IbqycanWktbykt Glucose study (ADAG), Diabetes Care, Vol.31,#8,Jun. 2007 Blood Venous blood specimen / Unknown 09/17/2025 10:35 AM EDT 09/17/2025 1:14 PM EDT Ana Barnes MD LAB BLOOD ORDERABLES Final Result [facility] [address] [place] [phone] * Diabetes Eye Exam (09/22/2024 1:20 PM EDT) Historical Provider HEALTH MAINTENANCE Final Result * Lipid Panel, Standard (03/13/2024 10:20 AM EDT) Triglycerides 142 <150 mg/dL [facility] Comment:Desirable Triglyceri de: less than 150 mg/dLBorderline High Triglyceride 150-199 mg/dLHigh Triglyceride: 200-499 mg/dLVery High Triglyceride: greater than or equal to 5OO mg/dL Cholesterol 174 <200 mg/dL [facility] Comment:Desirable Cholestero l: less than 200 mg/dLBorderline High Cholesterol: 200-239 mg/dLHigh Cholesterol: greater than 239 mg/dL LDL Cholesterol Calculated 97 <100 mg/dL [facility] Comment:Desirable LDL: less than 100 mg/dLNear Optimal/Above Optimal LDL: 110- 129 mg/dLBorderline High LDL: 130-159 mg/dLHigh LDL: 160-189 mg/dLVery High LDL: greater than or equal to 190 mg/dL HDL Cholesterol 49 >40 mg/dL [facility] Comment:Desirable HDL: great er than 40 mg/dL Note: This HDL assay may give artificially low results in patients with liver disease. 03/13/2024 10:2 0 AM EDT 03/13/2024 2:45 PM EDT Tess Ruvalcaba MD LAB BLOOD ORDERABLES Final Re sult Performing Organization Address [facility] de Phone Number [facility] [address] [place] [phone] * ALBUMIN, RANDOM URINE W/CREATININE (01/01/2022 [...] ORDERABLES Final Re sult Performing Organization Address [facility]/ZIP Co de Phone Number [facility] [place] [address] * HEPATITIS C ANTIBODY (02/12/2020 10:28 AM EDT) HEPATITIS C ANTIBODY NONREACTIVE NONREACTIVE [facility] Comment: Antibodies to HCV not detected; does not exclude early acute HCV infection. 02/12/2020 10:2 8 AM EDT Tess Ruvalcaba MD HISTORICAL/NON ORDERABLE LABS Final Result Performing Organization Address [facility] Phone Number [facility] [address] * HIV AB/AG (02/12/2020 10:28 AM [...] of detection of this assay. The [employer] HIV Ag/Ab Combo assay result and supplemental assay results should be interpreted in conjunction with the patient's clinical presentation, history and other laboratory results. If the results are inconsistent with clinical evidence, additional testing is suggested to confirm the result. 02/12/2020 10:2 8 AM EDT Tess Ruvalcaba MD HISTORICAL/NON ORDERABLE LABS Final Result Performing Organization Address [facility] Phone Number [facility] [address] from Last 3 Months or Most Recently Relevant to Health Maintenance Insurance [facility] (MEDICAID)
--- OUTSIDE RECORDS SUMMARY | 2025-10-17 12:10 | XMS_ITS | Encounter Summary ---
Author Organization [employer] Address [address] [address] Care Team Providers Care Extension Specialist Name Role Phone Tess Ruvalcaba MD Primary Care Provider [phone] Reason for Visit * Reason Onset Date Comments Medication Question 04/27/2024 Encounter Details Date Type Department Care Team ([facility] st Contact Info) Description 04/27/2024 Telephone [facility] MEDICINE [address] [place] [address] Tess Ruvalcaba MD [address] [place], [place] [phone] Medication Question Social History Tobacco Use Types [...] states was advised by pharmacy to call [facility] in regards to the medication dulaglutide (Trulicity) 4.5 MG/0.5ML solution pen-injector states only have the 3mg in stock and has been with out this medication for a month documented in this encounter Plan of Treatment Upcoming Encounters Date Type Department Care Team (Late st Contact Info) Description 12/17/2025 2:15 PM EST Office Visit [facility] ADULT DENTAL [address] [place] [address] Keith Barnes documented as of this encounter Visit Diagnoses Not on filedocumented in this encounter Additional Health Concerns Assessment Noted Time PHQ-9 Depression Total Score: 4 09/09/20 23 2:36 PM EDT documented as of this encounter Care Teams Extension Specialist Relationship Specialty Start Date End Date Tess Ruvalcaba MD [address] [place] [address] PCP - General Family Medicine 11/24/17 09/17/25 documented as of this encounter
--- OUTSIDE RECORDS SUMMARY | 2025-10-17 12:10 | XMS_ITS | Encounter Summary ---
Author Organization [employer] Address [address] [place] [id number] Care Team Providers Care Distance Learning Administrator Name Role Phone Tess Ruvalcaba MD Primary Care Provider [phone] Reason for Visit * Reason Onset Date Comments PT1 09/02/2023 Encounter Details Date Type Department Care Team ([facility] st Contact Info) Description 09/02/[address] [facility] MED & PEDS [address] [place], [place] [phone] Tess Ruvalcaba MD [address] [place] [address] PT1 Social History Tobacco Use Types Packs/Day [...] 09/02/2023 11:55 AM EDT Tc from [facility] (care program director) requesting PT1 transportation for pt. Start Date: 09/09/2023 Time: 2:00 PM Visits: n/a Address: [address] [place] [address] Facility: [facility] Wheel Chair: n/a Industrial Waste Inspector Needed: n/a documented in this encounter Plan of Treatment Upcoming Encounters Date Type Department Care Team ([facility] st Contact Info) Description 12/17/2025 2:15 PM EST Office Visit [facility] ADULT DENTAL [address] [place] [address] Keith Barnes documented as of this encounter Visit Diagnoses Not on filedocumented in this encounter Additional Health Concerns Assessment Noted Time PHQ-9 Depression Total Score: 0 04/15/20 23 2:08 PM EDT documented as of this encounter Care Teams Distance Learning Administrator Relationship Specialty Start Date End Date Tess Ruvalcaba MD [address] [place] [id number] PCP - General Family Medicine 11/24/17 09/17/25 documented as of this encounter
--- OUTSIDE RECORDS SUMMARY | 2025-10-17 12:10 | XMS_ITS | Encounter Summary ---
Author Organization [employer] [facility] Address [address] [place] [id number] Care Team Providers Care Almond Pan Finisher Name Role Phone Tess Ruvalcaba MD Primary Care Provider [phone] Encounter Details Date Type Department Care Team (Late Contact Info) Description 12/15/2022 Telephone [facility] MED & PEDS [address] [place] [address] Tess Ruvalcaba MD [address] [place] [address] Social History Tobacco Use Types Packs/Day Years [...] Description 12/17/2025 2:15 PM EST Office Visit [facility] ADULT DENTAL [address] [place] [address] Keith Barnes documented as of this encounter Visit Diagnoses Not on filedocumented in this encounter Care Teams Almond Pan Finisher Relationship Specialty Start Date End Date Tess Ruvalcaba MD [address] [place] [address] PCP - General Family Medicine 11/24/17 09/17/25 documented as of this encounter
--- OUTSIDE RECORDS SUMMARY | 2025-10-17 12:11 | XMS_ITS | Encounter Summary ---
Author Organization [employer] Address [address] [address] Care Team Providers Care Leather Sponger Name Role Phone Tess Ruvalcaba MD Primary Care Provider [phone] Reason for Visit * Reason Onset Date Comments Nurse Triage 02/08/2024 Encounter Details Date Type Department Care Team ([facility] st Contact Info) Description 02/08/2024 Telephone [facility] MEDICINE [address] [place] [address] Tess Ruvalcaba MD [address] [place] [address] Nurse Triage Social History Tobacco Use Types [...] 02/08/2024 9:53 AM EDT Triage call with [place] [employer] [place] [id number] Raul. Pt reports symptoms of cellulitis in left leg. Pt reports a history of this problem. Pt reports increased edema, swelling, redness and warmth ofthis left leg. Pt also has headache. Pt is advised to come to [facility] open till 8pm this evening. No available apts in [facility] today. Pt agrees with this disposition and will come to [facility]. Pt already aware of home care. Insurance [...] 12/17/2025 2:15 PM EST Office Visit [facility] ADULT DENTAL [address] [place] [address] Keith Barnes documented as of this encounter Visit Diagnoses Not on filedocumented in this encounter Additional Health Concerns Assessment Noted Time PHQ-9 Depression Total Score: 4 09/09/20 23 2:36 PM EDT documented as of this encounter Care Teams Leather Sponger Relationship Specialty Start Date End Date Tess Ruvalcaba MD [address] [place] [address] PCP - General Family Medicine 11/24/17 09/17/25 documented as of this encounter
== END 2025-10-17 10:49 | disposition home or self-care (01) ==
LOC: HO.HMCFMS 10:19
PROVIDERS: PCP Student in an Organized Health Care Education/Training Program; Visit Provider Student in an Organized Health Care Education/Training Program
DX: L71.9 Rosacea, unspecified (principal); H66.90 Otitis media, unspecified, unspecified ear; E66.01 Morbid (severe) obesity due to excess calories; R74.8 Abnormal levels of other serum enzymes